=== PATIENT | male | born 1940 | race Caucasian/White ===

== ENCOUNTER 2017-12-14 10:19 | Day surgery (SDC) | payer MEDICARE, OTHER ==
[2017-12-13 17:10] LABS: HEMATOCRIT 47.4 % (42.0-54.0); HEMOGLOBIN 15.2 g/dL (13.5-17.5); MCHC 32.1 g/dL (31.0-37.0); MCV 87.3 fL (80.0-100.0); MEAN PLATELET VOLUME 9.5 fL (7.4-10.4); RBC 5.43 10x6/uL (4.20-6.10); RDW 16.9 % (11.5-14.5); WBC 11.7 10x3/uL (4.8-10.8)
[2017-12-13 17:35] LABS: CALCIUM 8.4 mg/dL (8.5-10.1); CREATININE - SERUM 1.3 mg/dL (0.6-1.3)
[~2017-12-14] VITALS: Ht 185.4 cm; Wt 111.1 kg
--- NOTE | ~2017-12-14 | OP ---
PATIENT NAME: NANO URBAN MEDICAL RECORD: [id number] :38 LOCATION:[facility] ADMISSION DATE: SURGEON: WYATT BLUE DATE OF OPERATION: 12/14/2017 SURGEON: Wyatt Blue DPM PREOPERATIVE DIAGNOSIS: Tailor's bunion, left foot. POSTOPERATIVE DIAGNOSIS: Tailor's bunion, left foot. PROCEDURE: Reverse Bipin bunionectomy, left foot. ANESTHESIA: General. HEMOSTASIS: Pneumatic ankle tourniquet inflated to 250 mmHg. ESTIMATED BLOOD LOSS: Minimal. MATERIALS: Two 0.045-inch K-wires. INJECTABLES: A 10 cc of 0.5% bupivacaine plain. The patient has long-standing history of pain associated with a Tailor's bunion deformity. He has tried conservative measures to no avail. He is here today for correction of that deformity. We again reviewed the risks and benefits of the procedure. Complications were discussed. All questions were answered. He was appropriately consented for the above-mentioned procedure. The patient was brought to the operating room and placed on the operating table in supine position. A time-out was called with Dr. Blue, who identified the patient, the surgical site, and the surgery to be performed. Once appropriate anesthesia was obtained, the foot was prepped and draped in the usual aseptic manner. The pneumatic ankle tourniquet was inflated to 250 mmHg on a well-padded left ankle. Attention was directed to the dorsal aspect of the fifth metatarsophalangeal joint, where a 5-cm linear incision was made. This incision was carried deep to soft tissue with care being taken to retract all vital neurovascular structures. All bleeders were cauterized along the way. The periosteum was then reflected from the head of the first metatarsal and the base of the fifth proximal phalanx. The hypertrophied lateral eminence was then resected utilizing a sagittal saw. Utilizing a sagittal saw, a V-shaped osteotomy was created in the head of the fifth metatarsal. The capital fragment was translocated medially and impacted upon the fifth metatarsal shaft. Next, two 0.045-inch K-wires were driven from distal to proximal through the capital fragment and into the fifth metatarsal shaft. The surgical site was then irrigated with copious amounts of normal sterile saline via bulb syringe. The periosteum was then reapproximated and coapted utilizing 3-0 Vicryl. The subcutaneous was then reapproximated and coapted using 3-0 Vicryl. The skin was then reapproximated and coapted using 4-0 Prolene. A dressing consisting of Xeroform, 4 x 4, Kerlix, and Adalid bandage was applied to the left foot. The OPERATIVE REPORT [id number] NANO URBAN pneumatic ankle tourniquet was deflated and capillary refill time was immediate to all digits of the involved foot. The patient was discharged home with instructions to ice and elevate the foot. He was dispensed a boot to further offload the area. There were no complications with this procedure. We will follow up with him next week. TRANSINT:[id number] Voice Confirmation ID: [id number] DOCUMENT ID: [id number] WYATT BLUE at 1450 CC: [id number] DICTATION DATE: 12/14/17 1503 SMASH HAND: 12/14/17 1630 [facility] 12/14/[address] [address]
[~2017-12-14 10:19] MED LIST: CIPRO500 MG PO; DIOVAN320 MG PO; FLAGYL500 MG PO; JANUMET 50-5001 TAB PO; LOVAZA1 G PO; MONODOX100 MG PO; ZANTAC150 MG PO
[2017-12-14 10:45] VITALS: BP 139/84; Ht 185.4 cm; Wt 111.1 kg
== END 2017-12-14 16:31 | disposition home or self-care (01) ==
LOC: D.OPS 10:19 → D.PAN 12:00 → D.OPS 12:30
PROVIDERS: Anesthesiology
DX: M21.622 Bunionette of left foot (principal); Z01.812 Encounter for preprocedural laboratory examination

== ENCOUNTER 2020-07-14 06:14 | Inpatient (IN) | payer MEDICARE, OTHER ==
[~2020-07-14] VITALS: Ht 185.4 cm; Wt 108.7 kg
[2020-07-14] VITALS (17 sets, daily range): BP systolic 121–158; BP diastolic 59–105; BMI 30.6
[2020-07-14 07:16] LABS: BASOPHILS 0.2 % (0-2); EOSINOPHILS 0.7 % (0-7); HEMOGLOBIN 9.1 g/dL (13.5-17.5); IMMATURE GRANULOCYTES 0.4 % (0-5); LYMPHOCYTES 8.5 % (15-50); MCH 24.6 pg (26.0-34.0); MCHC 31.4 g/dL (31.0-37.0); MCV 78.4 fL (80.0-100.0); MEAN PLATELET VOLUME 8.7 fL (7.4-10.4); MONOCYTES 9.7 % (2-11); NEUTROPHILS 80.5 % (40-80); RDW 17.1 % (11.5-14.5); WBC 12.7 10x3/uL (4.8-10.8)
[2020-07-14 07:17] LABS: PLATELET COUNT 368 10x3/uL (130-400)
[2020-07-14 07:23] LABS: APTT 42.2 SECONDS (22.8-39.4); INR 1.25 (0.85-1.17); PROTIME 15.6 SECONDS (11.6-15.0)
[2020-07-14 07:26] LABS: D-DIMER-QUANTITATIVE 2.38 ug/mLFEU (0.20-0.54)
[2020-07-14 07:33] LABS: ALBUMIN 2.3 g/dL (3.4-5.0); ALKALINE PHOSPHATASE 38 U/L (30-120); ALT (SGPT) 18 U/L (10-68); BILIRUBIN - TOTAL 0.63 mg/dL (0.2-1.3); CALCIUM 7.6 mg/dL (8.5-10.1); CARBON DIOXIDE 29.3 mmol/L (21.0-32.0); CHLORIDE - SERUM 100 mmol/L (98-107); CREATININE - SERUM 1.2 mg/dL (0.6-1.3); MAGNESIUM - SERUM 1.1 mg/dL (1.8-2.4); PRO BNP 1343 pg/mL (0-450); PROTEIN - SERUM 5.4 g/dL (6.4-8.2); SODIUM 138 mmol/L (136-145); UREA NITROGEN 21 mg/dL (7-18); eGFR NON AFRICAN AMERICAN 62 mL/min (90-120)
[2020-07-14 07:52] LABS: CALC OSMOLALITY 285 mosm/kg (275-300); GLUCOSE 216 mg/dL (74-106); LIPASE 43 U/L (73-393); TROPONIN-I < 0.017 ng/mL (0.000-0.060)
[2020-07-14 07:53] LABS: POTASSIUM - SERUM 2.9 mmol/L (3.5-5.1)
[2020-07-14 07:56] LABS: C-REACTIVE PROTEIN 22.9 mg/dL (0.0-0.9)
--- NOTE | 2020-07-14 07:56 | NUR ---
ERP INFORMED OF CRITICAL LAB: K+ OF 2.9 AND LACTIC ACID OF 2.6
[2020-07-14 09:59] LABS: BILIRUBIN NEGATIVE (NEGATIVE); KETONE NEGATIVE (NEGATIVE); NITRITE NEGATIVE (NEGATIVE); UROBILINOGEN NORMAL (NORMAL)
[2020-07-14 10:05] LABS: RED CELLS - URINE >50 /hpf (0-5)
[2020-07-14 10:06] LABS: BACTERIA FEW /hpf (NEGATIVE); EPITHELIAL CELLS NSEEN /hpf (0-5)
--- NOTE | 2020-07-14 15:49 | NUR ---
PT FINISHED EATING HIS TRAY, PT ADVISED THAT HE FELT BETTER
[2020-07-14 16:52] LABS: POTASSIUM - SERUM 2.9 mmol/L (3.5-5.1)
--- NOTE | 2020-07-14 21:28 | NUR ---
PT ARRIVED VIA WHEELCHAIR TO ROOM. HE MOVED SELF TO BED SAFLEY AND WITH GOOD BALANCE. PT IS A&OX4, VS STABLE, HOWEVER HR IS 109 A.FIB WHICH IS THE REASON THE PT WAS ADMITED FOR NEW ONSET A.FIB. HE IS ON A CARDIZEM DRIP AT 0.5MG/HR IN THE RIGHT AC THAT IS CDI, NO S/S OF INFILTRATION. HE VOICES"NO" TO ANY PAIN OR OTHER C/O. WILL PERFORM FULL ASSESSMENT AND HISTORY AND DOC IN FLOWSHEET. ORIENTED PT TO USE OF CALL LIGHT AND HE VERBALIZED UNDERSTANDING. BED IS LOW,SIDE RAISLX2, CALL LIGTH WITHIN REACH. WILL CONTINUE TO MONITOR
--- NOTE | 2020-07-14 21:45 | NUR ---
WAS NOTIFED THAT PT WAS ACTUALLY ADMITED TO THE HOSPITAL TODAY WELL FROM AN OUTPT PROCEDURE. SET UP PHONE IN PT ROOM SO HE COULD CALL AND RECIVED HER ROOM NUMBER TO LET HIM KNOW WHAT NUMBER TO CALL. HE CALLS AT THIS TIME FROM ROOM PHONE AND IS TALKING WITH HER NOW.
--- NOTE | 2020-07-15 00:13 | NUR ---
PT USED CALL LIGHT TO GO TO BR. HE AMB BY SELF WITH GOOD BALANCE. HE VOIDED 350ML OF DARK YELLOW URINE. WILL COLLECT URINE SAMPLE PER ORDER. PT BACK TO BED SAFELY. NO NEEDS OR C/O OF PAIN. BED IS LOW,SIDE RIALSX2,CALL LIGTH WITHIN REACH. WILL CONITNUE TO MONITOR
[2020-07-15 01:11] LABS: BILIRUBIN NEGATIVE (NEGATIVE); KETONE NEGATIVE (NEGATIVE); NITRITE NEGATIVE (NEGATIVE); UROBILINOGEN NORMAL (NORMAL)
[2020-07-15 01:14] LABS: BACTERIA FEW /hpf (NEGATIVE); EPITHELIAL CELLS 0-5 /hpf (0-5); WHITE CELLS - URINE 0-5 /hpf (NEGATIVE)
--- NOTE | 2020-07-15 02:50 | NUR ---
PT USED CALL LIGHT TO GO TO BATHROOM. HE VOIDED 250ML OF YELLOW URINE AND BACK TO BED SAFLY. NO NEEDS OR C/O OF PAIN. BED IS LOW,SIDE RAISLX2,CALL LIGHT WITHIN REACH. WILL CONITNUE TO MONITOR
[2020-07-15 04:00] VITALS: BP 106/76
[2020-07-15 05:03] LABS: BASOPHILS 0.2 % (0-2); EOSINOPHILS 1.5 % (0-7); HEMATOCRIT 26.7 % (42.0-54.0); HEMOGLOBIN 8.5 g/dL (13.5-17.5); IMMATURE GRANULOCYTES 0.3 % (0-5); LYMPHOCYTES 14.3 % (15-50); MCH 24.8 pg (26.0-34.0); MCHC 31.8 g/dL (31.0-37.0); MCV 77.8 fL (80.0-100.0); MEAN PLATELET VOLUME 8.6 fL (7.4-10.4); MONOCYTES 16.4 % (2-11); NEUTROPHILS 67.3 % (40-80); PLATELET COUNT 364 10x3/uL (130-400); RBC 3.43 10x6/uL (4.20-6.10); RDW 17.2 % (11.5-14.5); WBC 6.6 10x3/uL (4.8-10.8)
[2020-07-15 05:22] LABS: % SATURATION 9 % (15-55); IRON 11 ug/dl (35-150); TOTAL IRON BIND CAPACITY 113 ug/dl (260-445); UNSAT IRON BIND CAPACITY 102 ug/dl (150-375)
[2020-07-15 05:40] LABS: CALC OSMOLALITY 282 mosm/kg (275-300); CALCIUM 7.4 mg/dL (8.5-10.1); CARBON DIOXIDE 29.5 mmol/L (21.0-32.0); CHLORIDE - SERUM 105 mmol/L (98-107); CHOL - HDL RATIO 2.4 ratio (2.3-4.9); CHOLESTEROL, TOTAL 66 mg/dL (0-200); CKMB 1.3 U/L (0.0-3.6); CREATINE KINASE 42 UL (21-232); CREATININE - SERUM 0.9 mg/dL (0.6-1.3); FERRITIN 107 ng/mL (3-244); GLUCOSE 177 mg/dL (74-106); HDL CHOLESTEROL 27 mg/dL (32-96); LDH 100 U/L (85-227); LDL CHOLESTEROL 30 mg/dL (0-100); LDL-HDL RATIO 1.1 ratio (1.5-3.5); MAGNESIUM - SERUM 1.6 mg/dL (1.8-2.4); PHOSPHOROUS 1.9 mg/dL (2.5-4.9); POTASSIUM - SERUM 3.5 mmol/L (3.5-5.1); SODIUM 139 mmol/L (136-145); TRIGLYCERIDE 45 mg/dL (30-200); TROPONIN-I < 0.017 ng/mL (0.000-0.060); eGFR NON AFRICAN AMERICAN 86 mL/min (90-120)
[2020-07-15 05:49] LABS: UREA NITROGEN 15 mg/dL (7-18)
--- NOTE | 2020-07-15 06:20 | NUR ---
STAND BY ASSIST FOR PT UP TO CHAIR FOR AM. VSS. HE VOICES"I FEEL GREAT, I DONT FEEL LIKE THERE IS ANYTHING WRONG WITH ME". BEDSIDE TABLE IS BY SIDE. CHAIR WHEELS ARE LOCKED, CALL LIGHT AND PHONE ARE BY SIDE. PROVIDED PT WITH SCHEDULED AND PRN MEDS, SEE MAR AND A CUP OF ORANGE JUICE PER REQUEST.
[2020-07-15 07:00] VITALS: BP 129/66
--- NOTE | 2020-07-15 08:05 | NUR ---
SPOKE WITH DR HENDRICKSON. GAVE UPDATE. PLAN ON DOING EGD AROUND 1500 TODAY. WILL OBTAIN CONSENT AND MAKE PT NPO.
--- NOTE | 2020-07-15 09:45 | NUR ---
PT SIGNED CONSENTS FOR PROCEDURE AND FOR ANESTHESIA.
[2020-07-15 09:56] VITALS: BP 106/76
[2020-07-15 11:00] VITALS: BP 135/76
--- NOTE | 2020-07-15 14:18 | NUR ---
CALL RECEIVED FROM GI LAB TO PREOP PT.
[2020-07-15 15:00] VITALS: BP 143/83
--- NOTE | 2020-07-15 15:12 | NUR ---
GI NURSES IN ROOM. SETTING UP FOR EGD. WILL CONTINUE TO MONITOR
--- NOTE | 2020-07-15 19:28 | NUR ---
CALLED REPORT TO [facility] ON MED 2. WILL TRANSFER PT DOWN.
--- NOTE | 2020-07-15 20:00 | NUR ---
PATIENT ARRIVED TO FLOOR BY WHEELCHAIR. PATIENT IS ALERT AND ORIENTED, RESTING COMFORTABLY IN BED. RESPIRATIONS ARE EVEN AND UNLABORED. NO S/S OF DISTRESS. NO C/O PAIN. NEEDS MET. CALL LIGHT WITHIN REACH. WILL CPOC.
--- NOTE | 2020-07-15 23:45 | NUR ---
PATIENT WAS TRANSFERRED FROM [facility] ICU. WAS TOLD IN REPORT THAT PATIENT WAS ALERT AND ORIENTED UP AD SA[place]H. PATIENT WAS FOUND ON FLOOR IN A PUDDLE OF FECES. PATIENT WAS DRINKING GO/ LYTELY. PATIENT DENIES ANY INJURIES. VITALS TAKEN BP 129/68 HR 150 UCAFIB. O2 99% CASH TOS[place]O APN NOTIFIED. PATIENT DOES NOT WANT HIS FAMILY NOTIFIED. MANAGER INTRANET NOTIFIED. PATIENT PLACED ON BED ALARM.
[2020-07-16 00:30] VITALS: BP 129/68
[2020-07-16 02:28] LABS: HEMATOCRIT 27.2 % (42.0-54.0); HEMOGLOBIN 8.5 g/dL (13.5-17.5)
[2020-07-16 04:30] VITALS: BP 132/71
[2020-07-16 07:12] LABS: HEMATOCRIT 29.4 % (42.0-54.0); HEMOGLOBIN 9.1 g/dL (13.5-17.5); MCH 24.4 pg (26.0-34.0); MCV 78.8 fL (80.0-100.0); MEAN PLATELET VOLUME 8.4 fL (7.4-10.4); PLATELET COUNT 360 10x3/uL (130-400); RBC 3.73 10x6/uL (4.20-6.10); RDW 17.3 % (11.5-14.5); WBC 20.3 10x3/uL (4.8-10.8)
[2020-07-16 07:22] LABS: ANION GAP 10.8 mmol/L (8-16); CALCIUM 7.2 mg/dL (8.5-10.1); CARBON DIOXIDE 30.4 mmol/L (21.0-32.0); CREATININE - SERUM 1.1 mg/dL (0.6-1.3); MAGNESIUM - SERUM 1.6 mg/dL (1.8-2.4); POTASSIUM - SERUM 4.2 mmol/L (3.5-5.1)
[2020-07-16 07:24] LABS: PHOSPHOROUS 2.6 mg/dL (2.5-4.9)
[2020-07-16 08:51] VITALS: BP 141/73
--- NOTE | 2020-07-16 10:24 | NUR ---
HAS CONVERTED TO SR 72.
[2020-07-16 11:59] VITALS: BP 112/70
[2020-07-16 13:28] LABS: LYMPHOCYTES 12 % (15-50); MONOCYTES 17 % (2-11); NEUTROPHILS 56 % (40-80)
[2020-07-16 13:29] LABS: ACANTHOCYTES OCC; PLATELET ESTIMATE NORMAL
--- NOTE | 2020-07-16 14:30 | NUR ---
PRE-OPS GIVEN. TO GI LAB BY BED.
--- NOTE | 2020-07-16 15:40 | NUR ---
BACK FROM GI LAB. DIET RESUMED.
[2020-07-16 16:47] LABS: % SATURATION 6 % (15-55); IRON 8 ug/dl (35-150); TOTAL IRON BIND CAPACITY 121 ug/dl (260-445); UNSAT IRON BIND CAPACITY 113 ug/dl (150-375)
[2020-07-16 20:00] VITALS: BP 111/66
--- NOTE | 2020-07-16 22:30 | NUR ---
CARIDZEM DRIP STOPPED. PATIENT HR BETWEEN 58-68 SINUS RHYTHM.
[2020-07-17] VITALS: BP 105/56
[2020-07-17 04:00] VITALS: BP 112/63
[2020-07-17 06:45] LABS: BASOPHILS 0.1 % (0-2); EOSINOPHILS 1.1 % (0-7); HEMATOCRIT 27.1 % (42.0-54.0); HEMOGLOBIN 8.1 g/dL (13.5-17.5); IMMATURE GRANULOCYTES 0.4 % (0-5); LYMPHOCYTES 15.1 % (15-50); MCH 23.6 pg (26.0-34.0); MCHC 29.9 g/dL (31.0-37.0); MEAN PLATELET VOLUME 8.5 fL (7.4-10.4); MONOCYTES 13.5 % (2-11); NEUTROPHILS 69.8 % (40-80); PLATELET COUNT 413 10x3/uL (130-400); RBC 3.43 10x6/uL (4.20-6.10); RDW 17.6 % (11.5-14.5)
[2020-07-17 06:48] LABS: WBC 9.1 10x3/uL (4.8-10.8)
[2020-07-17 07:04] LABS: CALCIUM 7.3 mg/dL (8.5-10.1); CARBON DIOXIDE 29.7 mmol/L (21.0-32.0); CHLORIDE - SERUM 105 mmol/L (98-107); CREATININE - SERUM 0.9 mg/dL (0.6-1.3); PHOSPHOROUS 2.3 mg/dL (2.5-4.9); SODIUM 139 mmol/L (136-145); UREA NITROGEN 13 mg/dL (7-18); eGFR NON AFRICAN AMERICAN 86 mL/min (90-120)
[2020-07-17 07:06] LABS: CALC OSMOLALITY 276 mosm/kg (275-300); GLUCOSE 87 mg/dL (74-106); MAGNESIUM - SERUM 2.1 mg/dL (1.8-2.4); POTASSIUM - SERUM 3.4 mmol/L (3.5-5.1)
[2020-07-17 08:01] VITALS: BP 117/65
--- NOTE | 2020-07-17 08:19 | EC ---
PATIENT:NANO URBAN DATE OF SERVICE: 07/14/20 SEX: M MEDICAL RECORD: [id number] DATE OF : 38 LOCATION:D.M2 D.211 AGE OF PATIENT: 79 ADMISSION DATE: 07/14/20 REFERRING PHYSICIAN: INTERPRETING PHYSICIAN: ROMEO CONNELL MD ECHOCARDIOGRAM REPORT ECHO CHARGES 4 ECHO COMPLETE Date: 07/14/20 CLINICAL DIAGNOSIS: AFIB ECHOCARDIOGRAPHIC MEASUREMENTS (adult normal given) AC root (d.<3.7cm) 3.5 cm LV Septum d (<1.2 cm> 1.1 cm Valve Excursion 1.6 cm LV Septum (systole) 1.9 cm Left Atria (s.<4.0cm> 3.1 cm LVPW d(<1.2cm) 1.1 cm RV (d.<2.3cm) 3.5 cm LVPW (sytole) 1.3 cm LV diastole(<5.6CM) 6.2 cm MV E-F(>70mm/sec) cm LV systole 4.7 cm LVOT Diameter 2.1 cm MV exc.(>10mm) cm Est.ejection fraction (50-75%) % DOPPLER: LVIT cm/sec A 78 cm/sec E 56 cm/sec LA cm/sec RVSP 22.4 mmHg LVOT 121 cm/sec AOP1/2T m/s Asc. Ao 147 cm/sec RVOT 65 cm/sec RA cm/sec PA 89 cm/sec AV Gradient Peak 8.7 mmHg AV Mean 5.3 mmHg AV Area 3.4 cm MV Gradient Peak 4.0 mmHg MV Mean 1.8 mmHg MV Area cm COMMENTS: Documentation Coordinator: Thong [facility] Junior Buyer: 3 Dr. Castellano TAPE# PACS Pericardial Effusion N DATE OF SERVICE: Adequate 2D, color-flow imaging, spectral Doppler, and M-Mode. No LVH. LV internal dimension is normal. Wall motion is normal. EF is greater than or equal to 55%. Aortic valve is sclerotic. No evidence of stenosis by Doppler interrogation. Left atrium is normal. Mitral valve shows no prolapse. Trace MR. Right-sided chambers are grossly normal. Trace TR. TRANSINT:[id number] Voice Confirmation ID: [id number] DOCUMENT ID: [id number] ECHOCARDIOGRAM REPORT [id number] NANO URBAN ROMEO CONNELL MD at 0819 CC: [id number] DICTATION DATE: 07/14/20 1446 CUPOLA MELTING SUPERVISOR: 07/14/20 2308 ADM IN [place] [id number] [place] [address]
[2020-07-17 12:30] VITALS: BP 127/67
[2020-07-17 12:44] VITALS: Ht 185.4 cm; Wt 108.7 kg
[2020-07-17 16:02] VITALS: BP 124/65
[2020-07-17 20:00] VITALS: BP 110/55
--- NOTE | 2020-07-17 20:00 | NUR ---
INITIAL ROUNDS COMPLETED. PT RESTING IN BED. NONLABORED RESPIRATIONS. CAF PER TELEMETRY. SALINE LOCK TO LFA. CPOC. CALL LIGHT IN REACH.
[2020-07-18 04:00] VITALS: BP 116/60
[2020-07-18 05:49] LABS: BASOPHILS 0.1 % (0-2); EOSINOPHILS 1.5 % (0-7); HEMATOCRIT 27.2 % (42.0-54.0); HEMOGLOBIN 8.2 g/dL (13.5-17.5); IMMATURE GRANULOCYTES 0.5 % (0-5); LYMPHOCYTES 20.6 % (15-50); MCHC 30.1 g/dL (31.0-37.0); MCV 79.8 fL (80.0-100.0); MEAN PLATELET VOLUME 8.5 fL (7.4-10.4); MONOCYTES 15.2 % (2-11); NEUTROPHILS 62.1 % (40-80); PLATELET COUNT 421 10x3/uL (130-400); RBC 3.41 10x6/uL (4.20-6.10); RDW 17.7 % (11.5-14.5); WBC 7.5 10x3/uL (4.8-10.8)
[2020-07-18 06:07] LABS: ANION GAP 6.2 mmol/L (8-16); CALCIUM 7.2 mg/dL (8.5-10.1); CARBON DIOXIDE 30.1 mmol/L (21.0-32.0); CREATININE - SERUM 1.1 mg/dL (0.6-1.3); PHOSPHOROUS 2.1 mg/dL (2.5-4.9); POTASSIUM - SERUM 3.3 mmol/L (3.5-5.1)
[2020-07-18 08:13] VITALS: BP 107/83
--- NOTE | 2020-07-18 11:41 | NUR ---
THIS AM PT RESTING QUIETLY WITHOUT ANY DISTRESS. MONITOR SHOWS SR AT RATE OF 95. LOWER EXTREMITIES ARE EDEMATOUS. WILL CONTINUE TO MONITOR.
[2020-07-18 12:00] VITALS: BP 139/62
[2020-07-18 16:00] VITALS: BP 115/73
[2020-07-18 20:00] VITALS: BP 113/58
--- NOTE | 2020-07-18 21:51 | NUR ---
PM MEDICATIONS ADMININSTERED. FSBS WAS WNL AND DID NOT REQUIRE INSULIN. OCCULT STOOL AND URINE CULTURE SENT TO LAB. PT DENIES ANY NEEDS AT THIS TIME. NO S/S OF DISTRESS NOTED. PT DELIGHTFUL AND APPRECIATIVE. WILL CTM.
--- NOTE | 2020-07-18 23:00 | NUR ---
ASSUMMED CARE OF PATIENT AT 2300. REPORT RECIEVED. PT RESTING IN BED WITH NO DISTRESS. SR UP X 2, CALL LIGHT IN REACH. CPOC.
[2020-07-19] VITALS: BP 108/47
[2020-07-19 04:00] VITALS: BP 124/79
[2020-07-19 06:18] LABS: BASOPHILS 0.1 % (0-2); EOSINOPHILS 1.2 % (0-7); HEMATOCRIT 26.7 % (42.0-54.0); HEMOGLOBIN 8.1 g/dL (13.5-17.5); IMMATURE GRANULOCYTES 0.7 % (0-5); LYMPHOCYTES 21.9 % (15-50); MCH 24.2 pg (26.0-34.0); MCHC 30.3 g/dL (31.0-37.0); MCV 79.7 fL (80.0-100.0); MEAN PLATELET VOLUME 8.5 fL (7.4-10.4); MONOCYTES 13.2 % (2-11); NEUTROPHILS 62.9 % (40-80); PLATELET COUNT 402 10x3/uL (130-400); RBC 3.35 10x6/uL (4.20-6.10); RDW 17.6 % (11.5-14.5); WBC 6.8 10x3/uL (4.8-10.8)
[2020-07-19 06:39] LABS: CALC OSMOLALITY 279 mosm/kg (275-300); CALCIUM 7.3 mg/dL (8.5-10.1); CARBON DIOXIDE 31.5 mmol/L (21.0-32.0); CHLORIDE - SERUM 105 mmol/L (98-107); CREATININE - SERUM 0.9 mg/dL (0.6-1.3); GLUCOSE 115 mg/dL (74-106); MAGNESIUM - SERUM 1.7 mg/dL (1.8-2.4); PHOSPHOROUS 2.5 mg/dL (2.5-4.9); SODIUM 140 mmol/L (136-145); UREA NITROGEN 13 mg/dL (7-18); eGFR NON AFRICAN AMERICAN 86 mL/min (90-120)
[2020-07-19 06:47] LABS: POTASSIUM - SERUM 4.4 mmol/L (3.5-5.1)
[2020-07-19 08:00] VITALS: BP 132/66
[2020-07-19] MEDS ORDERED: BETAPACE 80 MG80 MG PO (14:50)
[2020-07-19] MEDS ORDERED: OMNICEF300 MG PO (14:50)
[2020-07-19] MEDS ORDERED: PROTONIX40 MG PO (15:02)
[2020-07-19] MEDS ORDERED: CARAFATE1 G PO (15:02)
--- NOTE | 2020-07-19 16:07 | NUR ---
IV AND TELEMETRY DCD. DC PLANS GIVEN. UNDERSTANDING VOICED. ESCORTED TO CAR BY W/C.
== END 2020-07-19 16:08 | disposition home or self-care (01) | DRG 393 ==
LOC: D.ER 06:14 → D.M2 19:31 → D.CVICU 19:31 → D.M2 07-15 19:30
PROVIDERS: Family Medicine; Internal Medicine Gastroenterology; ADMIT Family Medicine Adult Medicine; ATTEND Family Medicine Adult Medicine
PROC: 0DB68ZX Excision of Stomach, Via Natural or Artificial Opening Endoscopic, Diagnostic (ICD-10-PCS; principal; 2020-07-15 15:00)
PROC: 0DBM8ZX Excision of Descending Colon, Via Natural or Artificial Opening Endoscopic, Diagnostic (ICD-10-PCS; 2020-07-16)
PROC: 0DBN8ZX Excision of Sigmoid Colon, Via Natural or Artificial Opening Endoscopic, Diagnostic (ICD-10-PCS; 2020-07-16)
DX: K63.3 Ulcer of intestine (principal); K29.71 Gastritis, unspecified, with bleeding; I48.91 Unspecified atrial fibrillation; D50.9 Iron deficiency anemia, unspecified; E87.6 Hypokalemia; I10 Essential (primary) hypertension; N40.0 Benign prostatic hyperplasia without lower urinary tract symptoms; E11.51 Type 2 diabetes mellitus with diabetic peripheral angiopathy without gangrene; K21.0 Gastro-esophageal reflux disease with esophagitis; K44.9 Diaphragmatic hernia without obstruction or gangrene; K25.9 Gastric ulcer, unspecified as acute or chronic, without hemorrhage or perforation; K64.8 Other hemorrhoids; E03.9 Hypothyroidism, unspecified

== ENCOUNTER 2020-07-27 09:32 | Outpatient (CLI) | payer MEDICARE, OTHER ==
[~2020-07-27] VITALS: Ht 185.4 cm; Wt 105.5 kg
[~2020-07-27 09:32] MED LIST changes: +BETAPACE 80 MG80 MG PO; +CARAFATE1 G PO; +OMNICEF300 MG PO; +PROTONIX40 MG PO
[2020-07-27 10:39] VITALS: BP 116/69; Ht 185.4 cm; Wt 105.5 kg
[2020-07-27] MEDS ORDERED: BAYER CHEWABLE81 MG PO (10:46)
[2020-07-27] MEDS ORDERED: OMNICEF300 MG PO (10:48)
--- NOTE | 2020-07-27 16:37 | NUR ---
2ND UNIT PRBC'S FINISHED TRANSFUSING. PATIENT LYING IN BED, AWAKE, ALERT, DENIES COMPLAINTS. IV FLUSHING WITH NS, SPOUSE NOTIFIED OF PATIENT'S IMPENDING DISCHARGE BY PHONE. 1705 LEFT HAND PIV DC'D WITH TIP INTACT. DISCHARGE INSTRUCTIONS REVIEWED WITH PATIENT. 1710 PATIENT DISCHARGED HOME VIA WHEELCHAIR TO PRIVATE VEHICLE WITH SPOUSE
== END 2020-07-27 17:10 | disposition home or self-care (01) ==
LOC: D.OPS 09:32
PROVIDERS: ATTEND Emergency Medicine
DX: D64.89 Other specified anemias (principal)

== ENCOUNTER 2020-08-11 10:58 | Day surgery (SDC) | payer MEDICARE, OTHER ==
[~2020-08-11] VITALS: Ht 185.4 cm; Wt 111.3 kg
--- NOTE | ~2020-08-11 | OP ---
PATIENT NAME: NANO COHEN MEDICAL RECORD: [id number] :38 LOCATION:D.CAT ADMISSION DATE: SURGEON: ROMEO CONNELL MD DATE OF OPERATION: 08/11/2020 PROCEDURE: Cardioversion. DESCRIPTION OF PROCEDURE: After general sedation via TIVA via anesthesia, initial synchronized shock at 200 joules was unsuccessful in restoring normal sinus rhythm. We proceeded with a second shock at 300 joules. This showed sikhism of atrial fibrillation to normal sinus rhythm with frequent PACs. IMPRESSION: Successful cardioversion on Nano Cohen. During the procedure, the patient monitored continually with telemetry, pulse oximetry, and noninvasive blood pressure. TRANSINT:[id number] Voice Confirmation ID: [id number] DOCUMENT ID: [id number] ROMEO CONNELL MD CC: [id number] DICTATION DATE: 08/11/20 1504 IC DESIGNER CUSTOM: 08/12/20 0007 [facility] 08/11/20 [place] [id number]
--- NOTE | ~2020-08-11 | TEE ---
PATIENT:NANO URBAN MEDICAL RECORD: [id number] [facility] AGE OF PATIENT: 79 ADMISSION DATE: 08/11/20 SEX: M REFERRING PHYSICIAN: INTERPRETING PHYSICIAN: ROMEO CONNELL MD TRANSESOPHAGEAL ECHOCARDIOGRAM Date: 08/11/20 SARATH CHARGE Y INDICATIONS: CARDIOVERSION PREMEDICATIONS: PATIENT'S RESPONSE PROCEDURE DOPPLER MEASUREMENTS: LVIT LA PA RA LVOT RVOT Asc. Ao AV Gradient Peak AV Mean AV Area MV Gradient Peak MV Mean MV Area INTERPRETATION: Doppler: 2-D: COLOR FLOW DOPPLER NORMAL SALINE STUDY: MISCELLANOUS: DIAGNOSIS: PLAN: School Bus Driver:3 Dr. Castellano Rotary Lithographic Press Operator: Thong RICARDO COMMENTS: PACS DATE OF SERVICE: 08/11/2020 DESCRIPTION OF PROCEDURE: After general sedation via TIVA via anesthesia, transesophageal Omniplane probe was placed in the distal esophagus and proximal stomach without difficulty. FINDINGS: No LVH. LV internal dimensions are normal. Difficult to fully assess focal wall motion secondary to underlying atrial fibrillation; however on views present EF appears to be well preserved at 50% or better. Aortic valve is TRANSESOPHAGEAL ECHOCARDIOGRAM REPORT [id number] NANO URBAN V tricuspid. Good valve excursion. Mild AI only. Left atrium grossly appears normal. Left atrial appendage is well visualized with no evidence of thrombus and good contractility via Doppler interrogation. Mitral valve shows no prolapse. Trace to mild MR. Right-sided chambers are grossly normal. Trace TR. At the end of the procedure, the probe was turned posteriorly and this showed minimal atherosclerotic debris in the descending aorta. TRANSINT:[id number] Voice Confirmation ID: [id number] DOCUMENT ID: [id number] ROMEO CONNELL MD CC: [id number] DICTATION DATE: 08/11/20 1503 PARTS CASTING MACHINE OPERATOR: 08/12/20 0402 [facility] 08/11/20 [facility] [address] [place] [id number]
--- NOTE | ~2020-08-11 | HEMODYNAMI ---
PATIENT:NANO URBAN MEDICAL RECORD: [id number] : 38 LOCATION:[facility] ADMISSION DATE: 08/11/20 Generatedon:08/11/202013:35 Patient name: NANO URBAN Patient #: [id number] SSN: : 1940 Date of study: 08/11/2020 Page: Of Hemodynamic Procedure Report Patient Data Patient Demographics Procedure consent was obtained First Name: NANO Gender: Male Last Name: WILMAR : 1940 Middle Initial: BOOGIE Age: 79 year(s) Patient #: [id number] Race: Additional ID: [id number] Contact details Address: [address] [place] [address] State: [place] City: [place] Zip code: [address] Past Medical History Allergies: No known allergies Admission Admission Data Admission Date: 08/11/2020 Admission Time: 10:58 Admit Source: Other Lab Results Lab Result Date: 08/11/2020 Lab Result Time: 11:45 Biochemistry Name Units Result Min Max BUN mg/dl 12 --(-*--)-- 7 18 Creatinine mg/dl 0.9 --(-*--)-- 0.6 1.3 CBC Name Units Result Min Max Hematocrit % 29.1 *-(----)-- 42 54 Hemoglobin g/dl 8.7 *-(----)-- 13.5 17.5 Procedure Procedure Types Cath Procedure Diagnostic Procedure Cardioversion External SARATH Procedure Description Procedure Date Procedure Date: 08/11/2020 Procedure Start Time: 13:09 Procedure End Time: 13:30 Procedure Staff Name Function Ron Alexandra MD Performing Physician Mathew Gomez RT Monitor Rose Gallegos RN Nurse Saleem Allen CRNA Additional personnel Minerva Muñoz Painter Mirror Procedure Data Cath Procedure Fluoroscopy Diagnostic fluoroscopy Total fluoroscopy Time: 0 time: 0 min min Diagnostic fluoroscopy Total fluoroscopy dose: 0 dose: 0 mGy mGy Contrast Material Contrast Material Type Amount (ml) Isovue 300 0 Estimated blood loss: 0 ml Procedure Complications No complications Procedure Medications Medication Administration Route Dosage Oxygen etCO2 Nasal cannula 2 l/min Hurricaine [place] P.O. 1 Sprays Refer to Anesthesia Notes for Sedation Medications Hemodynamics Rest HGB: 8.7 (g/dl) Heart Rate: 109 (bpm) Snapshots Pre Cath Intra NCS Post Cath Vital Signs Time Heart Resp SPO2 etCO2 NIBP (mmHg) Rhythm Pain Sedation Rate (ipm) (%) (mmHg) Status Level (bpm) 13:04:10 106 15 97 0 No Cuff NSR 0 (11) 10(A) , No pain 13:10:25 110 15 100 15 140/97(114) NSR 0 (11) 10(A) , No pain 13:14:37 96 20 96 23.3 142/89(108) NSR 0 (11) 9(A) , No pain 13:20:21 90 18 93 38.3 136/97(129) NSR 0 (11) 9(A) , No pain 13:24:33 113 24 94 39.1 130/85(113) NSR 0 (11) 9(A) , No pain 13:28:43 118 19 98 35.3 117/81(104) NSR 0 (11) 10(A) , No pain Medications Time Medication Route Dose Verified Delivered Reason Notes Effectiv eness by by 13:02:42 Hurricaine P.O. 1 Ron Rose Per [place] Sprays St Jason Gallegos RN physician 13:02:47 Refer to Ron Rose Anesthesia St Jason Gallegos RN Notes for MD Sedation Medications 13:05:33 Oxygen etCO2 2 Ron Rose used for Nasal l/min St Jason Gallegos RN procedure cannula Procedure Log Time Note 12:43:02 Admit Source: Other 12:44:40 Procedure Status Cardioversion, SARATH. 12:44:41 Time tracking: Regular hours (M-F 7:00 - 5:00) 12:44:44 Plan of Care:Hemodynamics will remain stable., Cardiac rhythm will remain stable., Comfort level will be maintained., Respiratory function will remain adequate., Patient/ family verbilizes understanding of procedure., Procedure tolerated without complication., Recovers from procedure without complications.. 12:46:03 H&P Date Dictated: 08/04/2020 Within 30 days and on chart.. 12:50:49 Buffie Gallegos RN sent for patient. Start room use. 12:57:46 Saleem Aleln CRNA present and monitoring patient for TIVA. 12:57:53 Patient arrived from Pre/Post Procedure Room to CCL 1. Patient remains on bed/stretcher for procedure. 12:57:54 Warm blankets applied, and mony hugger turned on for patient comfort. 12:57:55 Signed procedure consent form obtained from patient. 12:57:56 Correct patient and procedure confirmed by team. 12:57:57 ECG and BP/O2 sat monitors applied to patient. 12:57:58 Pre-procedure instructions explained to patient. 12:57:58 Pre-op teaching completed and patient verbalized understanding. 12:58:00 Family in waiting room. 12:58:01 Patient NPO since Midnight. 12:58:08 Patient allergic to No known allergies 13:00:31 Lab Result : BUN 12 mg/dl 13:00:31 Lab Result : Creatinine 0.9 mg/dl 13:00:31 Lab Result : Hemoglobin 8.7 g/dl 13:00:31 Lab Result : Hematocrit 29.1 % 13:00:35 Is the patient allergic to Iodine/contrast media? No. 13:00:37 Is patient on blood thinner?No 13:00:42 Previous problem with sedation/anesthesia? No ? 13:00:58 See anesthesia notes for assessment. 13:01:03 Lab results completed and on chart. 13:02:42 Hurricaine [place] 1 Sprays P.O. was administered by Rose Gallegos RN; Per physician; Verbal order read back and verified. 13:02:47 Refer to Anesthesia Notes for Sedation Medications was administered by Rose Gallegos RN; ; Verbal order read back and verified. 13:03:20 Vital chart was started 13:05:10 [facility] Clinical Supervisor present for SARATH. 13:05:12 Quick combo pads placed on patients chest and back. 13:05:20 Baseline sample Acquired. 13:05:24 Rhythm: atrial fibrillation 13:05:27 Full Disclosure recording started 13:05:33 Oxygen 2 l/min etCO2 Nasal cannula was administered by Rose Gallegos RN; used for procedure; Verbal order read back and verified. 13:07:33 Physician arrived 13:07:34 --------ALL STOP TIME OUT------ 13:07:35 Final Timeout: patient, procedure, and site verified with staff and physician. All members of the team are in agreement. 13::49 Physical assessment completed. ASA score P 4 - A patient with severe systemic disease that is a constant threat to life as per Ron Alexandra MD. 13:07:56 Sedation plan: TIVA Medication:Propofol 13:09:49 Procedure started. 13:09:50 SARATH started. 13:16:17 SARATH completed. 13:16:55 Defibrillator synced and charged to 200 Joules. 13:17:16 Shock delivered. 13:19:17 Defibrillator synced and charged to 300 Joules. 13:19:30 Shock delivered. 13:20:25 Patient cardioverted to sinus rhythm . 13:20:28 Procedure ended.(Physican Out) 13:21:48 Fluoroscopy time 00.00 minutes. 13::49 Flurop Dose total: 0 13::49 Fluoroscopy dose: 0 mGy 13::51 Dose Area Product 0 mGy/cm. 13::54 Contrast amount:Isovue 300 0ml. 13:22:00 Post-procedure physical assessment completed. ASA score P 4 - A patient with severe systemic disease that is a constant threat to life as per Ron Alexandra MD. 13:22:03 Post procedure rhythm: sinus rhythm 13:22:04 Estimated blood loss: 0 ml 13:22:06 Post procedure instruction explained to patient.Patient verbalizes understanding. 13:22:06 Patient needs reinforcement of post procedure teaching. 13:22:18 Procedure and supply charges have been captured, reviewed, submitted and are correct. 13:22:36 Procedure Complication : No complications 13::57 Vital chart was stopped 13:30:01 Operative report dictated upon procedure completion. 13:30:02 See physician's report for complete and final results. 13:30:03 Report given to Pre/Post Procedure Room. 13:30:06 Patient transfered to Pre/Post Procedure Room with Stretcher. 13:30:08 Procedure ended. 13:30:08 Full Disclosure recording stopped 13:30:16 End room use (Document Last) 13:30:34 End room use (Document Last) 13:30:44 Mathew HUNG(R) was relieved by Mathew HUNG(R) as monitoring person 13::44 End room use (Document Last) 13:34:43 End room use (Document Last) 13:34:49 Mathew Gomez RT(R) was relieved by Mathew Gomez RT(R) as monitoring person 13:34:49 End room use (Document Last) Signature Audit [place] Stage Time Signature Unsigned Intra-Procedure 08/11/2020 Mathew Gomez 1:30:34 PM RT(R) Intra-Procedure 08/11/2020 Rose Gallegos RN 1:34:43 PM Intra-Procedure 08/11/2020 Ron Mcmanus 1:35:12 PM Jason MURILLO Signatures Performing Physician : Signature : Ron Alexandra MD Date : Time : Monitor : Mathew Gomez RT Signature : Date : Time : Nurse : Rose Gallegos RN Signature : Date : Time : [address] [place] [address]
[~2020-08-11 10:58] MED LIST changes: +BAYER CHEWABLE81 MG PO
[2020-08-11] MEDS ORDERED: AMIODARONE HCL200 MG PO (11:14)
[2020-08-11] MEDS ORDERED: LEVOTHYROXINE50 MCG PO (11:15)
[2020-08-11] MEDS ORDERED: VIBRAMYCIN 100100 MG PO (11:15)
[2020-08-11] MEDS ORDERED: KEFLEX500 MG PO (11:16)
[2020-08-11] MEDS ORDERED: NEXIUM40 MG PO (11:16)
[2020-08-11] MEDS ORDERED: FLOMAX0.4 MG PO (11:17)
[2020-08-11] MEDS ORDERED: DONEPEZIL HCL10 MG PO (11:18)
[2020-08-11] MEDS ORDERED: CETIRIZINE HCL5 MG PO (11:21)
[2020-08-11 11:42] VITALS: BP 102/75; Ht 185.4 cm; Wt 111.3 kg
[2020-08-11 12:04] LABS: CALC OSMOLALITY 277 mosm/kg (275-300); CALCIUM 7.9 mg/dL (8.5-10.1); CARBON DIOXIDE 32.6 mmol/L (21.0-32.0); CHLORIDE - SERUM 101 mmol/L (98-107); CREATININE - SERUM 0.9 mg/dL (0.6-1.3); GLUCOSE 133 mg/dL (74-106); SODIUM 138 mmol/L (136-145); UREA NITROGEN 12 mg/dL (7-18); eGFR NON AFRICAN AMERICAN 86 mL/min (90-120)
[2020-08-11 12:07] LABS: POTASSIUM - SERUM 2.7 mmol/L (3.5-5.1)
[2020-08-11 12:16] LABS: BASOPHILS 0.2 % (0-2); EOSINOPHILS 1.2 % (0-7); HEMATOCRIT 29.1 % (42.0-54.0); HEMOGLOBIN 8.7 g/dL (13.5-17.5); IMMATURE GRANULOCYTES 0.6 % (0-5); LYMPHOCYTES 9.8 % (15-50); MCH 24.7 pg (26.0-34.0); MCHC 29.9 g/dL (31.0-37.0); MCV 82.7 fL (80.0-100.0); MEAN PLATELET VOLUME 8.5 fL (7.4-10.4); MONOCYTES 8.5 % (2-11); NEUTROPHILS 79.7 % (40-80); PLATELET COUNT 375 10x3/uL (130-400); RBC 3.52 10x6/uL (4.20-6.10); RDW 20.8 % (11.5-14.5); WBC 12.2 10x3/uL (4.8-10.8)
[2020-08-11 12:33] LABS: INR 1.17 (0.85-1.17); PROTIME 14.8 SECONDS (11.6-15.0)
[2020-08-11] MEDS ORDERED: FERROUS SULFAT325 MG PO (12:37)
[2020-08-11] MEDS ORDERED: MULTI-DAY VITAM1 TAB PO (12:37)
--- NOTE | 2020-08-11 13:40 | NUR ---
PT REC'D TO ROOM 5 VIA STRETCHER FROM RN ED. MONITORS ESTAB. AT BS. SEE PROCESS DEVELOPER. ALARMS ON AND C/L IN REACH.
--- NOTE | 2020-08-11 13:55 | NUR ---
VSS, CM IRREG - SINUS ARRYTHMIA WITH FREQ PACS, UNCHANGED FROM ARRIVAL TO UNIT. VSS. PT DENIES PAIN OR NEEDS. ALARMS ON AND C/L IN REACH.
--- NOTE | 2020-08-11 14:05 | NUR ---
PT SITTING UP IN BED, SANDWICH TRAY PROVIDED.
--- NOTE | 2020-08-11 14:23 | NUR ---
ALL DISCHARGE INSTRUCTIONS REVIEWED WITH PT AND , INCLUDING MEDS, RESTRICTIONS AND F/U. BOTH VERBALIZE UNDERSTANDING.
--- NOTE | 2020-08-11 14:25 | NUR ---
CM - UNCHANGED, VSS. PIV D/C'D INTACT, DSG APPLIED. PT ALLOWED UP TO GET DRESSED AND GO TO BR INDEPENDENTLY. ASSISTING.
--- NOTE | 2020-08-11 14:35 | NUR ---
PT D/C'D VIA WC TO PRIVATE VEHICLE WITH ALL PAPERWORK AND BELONGINGS.
== END 2020-08-11 14:35 | disposition home or self-care (01) ==
LOC: D.CATH 10:58
PROVIDERS: ATTEND Internal Medicine Interventional Cardiology
DX: I48.91 Unspecified atrial fibrillation (principal); I10 Essential (primary) hypertension

== ENCOUNTER 2021-02-02 10:56 | Inpatient (IN) | payer MEDICARE, OTHER ==
[~2021-02-02] VITALS: Ht 185.4 cm; Wt 91.8 kg
[~2021-02-02 10:56] MED LIST changes: +AMIODARONE HCL200 MG PO; +CETIRIZINE HCL5 MG PO; +DONEPEZIL HCL10 MG PO; +FERROUS SULFAT325 MG PO; +FLOMAX0.4 MG PO; +KEFLEX500 MG PO; +LEVOTHYROXINE50 MCG PO; +MULTI-DAY VITAM1 TAB PO; +NEXIUM40 MG PO; +VIBRAMYCIN 100100 MG PO
[2021-02-02 11:37] LABS: BASOPHILS 0.1 % (0-2); EOSINOPHILS 0.9 % (0-7); HEMATOCRIT 32.2 % (42.0-54.0); HEMOGLOBIN 10.3 g/dL (13.5-17.5); LYMPHOCYTE ABS# 1.51 10x3/uL (1.32-3.57); LYMPHOCYTES 12.1 % (15-50); MCH 27.7 pg (26.0-34.0); MCV 86.6 fL (80.0-100.0); MEAN PLATELET VOLUME 8.3 fL (7.4-10.4); MONOCYTES 5.9 % (2-11); NEUTROPHIL ABS# 9.98 10x3/uL (1.78-5.38); RBC 3.72 10x6/uL (4.20-6.10); RDW 19.4 % (11.5-14.5); WBC 12.5 10x3/uL (4.8-10.8)
[2021-02-02 11:39] LABS: PLATELET COUNT 255 10x3/uL (130-400)
[2021-02-02 11:55] LABS: CALC OSMOLALITY 281 mosm/kg (275-300); CALCIUM 9.3 mg/dL (8.5-10.1); CARBON DIOXIDE 28.3 mmol/L (21.0-32.0); CHLORIDE - SERUM 101 mmol/L (98-107); CREATININE - SERUM 1.3 mg/dL (0.6-1.3); POTASSIUM - SERUM 4.5 mmol/L (3.5-5.1); SODIUM 137 mmol/L (136-145); UREA NITROGEN 21 mg/dL (7-18); eGFR NON AFRICAN AMERICAN 56 mL/min (90-120)
[2021-02-02 11:57] LABS: GLUCOSE 190 mg/dL (74-106)
[2021-02-02 12:11] LABS: ALBUMIN 2.9 g/dL (3.4-5.0); ALKALINE PHOSPHATASE 42 U/L (30-120); ALT (SGPT) 20 U/L (10-68); BILIRUBIN - TOTAL 0.42 mg/dL (0.2-1.3); CKMB 0.8 U/L (0.0-3.6); CREATINE KINASE 40 UL (21-232); MAGNESIUM - SERUM 1.5 mg/dL (1.8-2.4); PROTEIN - SERUM 6.4 g/dL (6.4-8.2)
[2021-02-02 12:22] LABS: TROPONIN-I < 0.017 ng/mL (0.000-0.060)
[2021-02-02 12:23] LABS: APTT 29.2 SECONDS (22.8-39.4); INR 1.14 (0.85-1.17); PROTIME 13.5 SECONDS (11.6-15.0)
[2021-02-02 13:28] LABS: BILIRUBIN NEGATIVE (NEGATIVE); KETONE NEGATIVE (NEGATIVE); NITRITE NEGATIVE (NEGATIVE); UROBILINOGEN NORMAL mg/dL (< 2)
[2021-02-02 15:10] VITALS: BP 175/88
[2021-02-02 19:17] VITALS: BP 175/88; Ht 185.4 cm; Wt 91.8 kg
--- NOTE | 2021-02-02 20:00 | NUR ---
PT SITTING UP IN BED WITHOUT DISTRESS, AOX4. IV RIGHT AC INFUSING NS @ 75. BED ALARM ON. DENIES NEEDS AT THIS TIME. CL IN REACH
[2021-02-02 20:06] VITALS: BP 158/80
[2021-02-03] VITALS (10 sets, daily range): BP systolic 76–139; BP diastolic 40–78
[2021-02-03 06:49] LABS: BASOPHILS 0.3 % (0-2); EOSINOPHILS 1.7 % (0-7); HEMATOCRIT 29.7 % (42.0-54.0); HEMOGLOBIN 9.4 g/dL (13.5-17.5); IMMATURE GRANULOCYTES 0.5 % (0-5); LYMPHOCYTE ABS# 1.71 10x3/uL (1.32-3.57); LYMPHOCYTES 16.8 % (15-50); MCH 27.5 pg (26.0-34.0); MCHC 31.6 g/dL (31.0-37.0); MCV 86.8 fL (80.0-100.0); MEAN PLATELET VOLUME 8.4 fL (7.4-10.4); MONOCYTES 6.4 % (2-11); NEUTROPHIL ABS# 7.55 10x3/uL (1.78-5.38); NEUTROPHILS 74.3 % (40-80); PLATELET COUNT 235 10x3/uL (130-400); RBC 3.42 10x6/uL (4.20-6.10); WBC 10.2 10x3/uL (4.8-10.8)
[2021-02-03 06:52] LABS: APTT 30.8 SECONDS (22.8-39.4)
[2021-02-03 06:54] LABS: INR 1.24 (0.85-1.17); PROTIME 14.4 SECONDS (11.6-15.0)
[2021-02-03 07:06] LABS: ALBUMIN 2.6 g/dL (3.4-5.0); ANION GAP 10.6 mmol/L (8-16); BILIRUBIN - TOTAL 0.55 mg/dL (0.2-1.3); CALCIUM 8.4 mg/dL (8.5-10.1); CARBON DIOXIDE 26.7 mmol/L (21.0-32.0); CREATININE - SERUM 1.1 mg/dL (0.6-1.3); MAGNESIUM - SERUM 1.4 mg/dL (1.8-2.4); POTASSIUM - SERUM 4.3 mmol/L (3.5-5.1); PROTEIN - SERUM 5.7 g/dL (6.4-8.2)
--- NOTE | 2021-02-03 07:45 | NUR ---
PATIENT LAYING IN BED ON PHONE, LUNGS CTA, BOWEL SOUNDS ACTIVE, NO S/S OF DISTRESS, NO NEEDS VOICED, CONTINUE WITH PLAN OF CARE
--- NOTE | 2021-02-03 15:29 | NUR ---
POLEYARD SUPERVISOR WENT TO GET PATIENT ORTHOSTATIC BP AND PATIENT INQUIRED ON WHY WE ARE STILL DOING THIS BECAUSE HE SPOKE TO DOCTOR AND THEY CAME TO CONCLUSION BP DROPPING IS DUE TO BP MEDICATIONS PATIENT IS ON. PATIENT REFUSING ORTHOSTATICS. CONTINUE WITH PLAN OF CARE
--- NOTE | 2021-02-03 19:30 | NUR ---
PT SITTING UP IN BED WITHOUT DISTRESS, AOX4. IV RIGHT AC INFUSING NS @ 50. ENCOURAGED PT USE INCENTIVE SPIROMETER AND EDUCATED ON PURPOSE. PT USING INCENTIVE SPIROMETER WHILE AWAKE. SCDS ON BILAT. DENIES NEEDS AT THIS TIME. BED ALARM ON, CL IN REACH
--- NOTE | 2021-02-03 21:00 | NUR ---
PT TOOK HS MEDS WITHOUT DIFFICULTY. FSBS 141, NO COVERAGE PER SS. DENIES NEEDS, BED ALARM ON. CL IN REACH
--- NOTE | 2021-02-04 00:10 | NUR ---
PT LYING IN BED SLEEPING WITHOUT DISTRESS, CL IN REACH, BED ALARM ON
[2021-02-04 00:29] VITALS: BP 132/78
[2021-02-04 04:00] VITALS: BP 128/70
[2021-02-04 05:37] LABS: BASOPHILS 0.2 % (0-2); HEMATOCRIT 28.9 % (42.0-54.0); IMMATURE GRANULOCYTES 0.5 % (0-5); LYMPHOCYTE ABS# 1.71 10x3/uL (1.32-3.57); LYMPHOCYTES 15.7 % (15-50); MCH 26.9 pg (26.0-34.0); MCHC 31.1 g/dL (31.0-37.0); MCV 86.5 fL (80.0-100.0); MEAN PLATELET VOLUME 8.4 fL (7.4-10.4); MONOCYTES 5.9 % (2-11); NEUTROPHIL ABS# 8.28 10x3/uL (1.78-5.38); NEUTROPHILS 75.7 % (40-80); PLATELET COUNT 226 10x3/uL (130-400); RBC 3.34 10x6/uL (4.20-6.10); RDW 18.8 % (11.5-14.5); WBC 10.9 10x3/uL (4.8-10.8)
[2021-02-04 06:03] LABS: ALBUMIN 2.4 g/dL (3.4-5.0); ANION GAP 8.8 mmol/L (8-16); BILIRUBIN - TOTAL 0.34 mg/dL (0.2-1.3); CALCIUM 8.1 mg/dL (8.5-10.1); CARBON DIOXIDE 27.4 mmol/L (21.0-32.0); CREATININE - SERUM 1.1 mg/dL (0.6-1.3); MAGNESIUM - SERUM 1.4 mg/dL (1.8-2.4); POTASSIUM - SERUM 4.2 mmol/L (3.5-5.1); PROTEIN - SERUM 5.4 g/dL (6.4-8.2)
--- NOTE | 2021-02-04 07:00 | NUR ---
PT IS RESTING IN BED WITH EYES CLOSED. RESPIRATIONS ARE EVEN AND UNLABORED. PT IS EASILY AROUSED WITH VERBAL STIMULATION AND IS AAO X 4 UPON AROUSAL. PT DENIES PRESENCE OF PAIN/N/V AT THIS TIME. PT STATES THAT HE DOES NOT FEEL DIZZY "IF I DONT MOVE". SCDS ARE ON BLE. PIV TO RIGHT AC INFUSING PER ORDER WITHOUT COMPROMISE. ALL FALL PRECAUTIONS IN PLACE EXCEPT FOR YELLOW GOWN. PT REFUSES YELLOW GOWN AND REQUESTS TO STAY IN OWN CLOTHES. PT DENIES PRESENCE OF NUMBNESS/TINGLING TO BUE AND BLE. BED IS IN THE LOWEST POSITION. CALL LIGHT AND BEDSIDE TABLE ARE WITHIN REACH. ICENTICE SPIROMETER ENCOURAGED. SIDE RAILS X 2. PT DENIES FURTHER NEEDS. WILL CONT TO MONITOR.
[2021-02-04 08:37] VITALS: BP 135/75
[2021-02-04 13:14] VITALS: BP 131/67
[2021-02-04] MEDS ORDERED: AMIODARONE HCL200 MG PO (13:15)
[2021-02-04] MEDS ORDERED: FLORINEF 0.1 M0.1 MG PO (14:33)
--- NOTE | 2021-02-04 14:36 | MORECARE ---
CASE MANAGEMENT DISCHARGE SUMMARY PATIENT: NANO URBAN UNIT: [id number] ADM DATE: 02/03/21 AGE: 80 : 38 SEX: M ROOM/BED: D.2218 AUTHOR: VALE PEOPLES PHYSICIAN: REFERRING PHYSICIAN: DAVE MEADOWS MD DATE OF SERVICE: 02/04/21 Discharge Plan Patient Name: NANO URBAN [facility] [facility] 1940 Planned Disposition: Home or Self Care Anticipated Discharge Date: Discharge Date: Expected LOS: Initial Reviewer: [email or web address] Initial Review Date: 02/02/2021 Generated: 02/04/21 3:36 pm DCPIA - Discharge Planning Initial Assessment Updated by [email or web address]: Ana Stanley on 02/04/21 2:36 pm * Is the patient Alert and Oriented? Yes * How many steps to enter\exit or inside your home? * PCP PEEWEE * Pharmacy [facility] * Preadmission Environment Home with Family * ADLs Independent * Equipment Rolling Walker * List name and contact numbers for known caregivers / representatives who currently or will assist patient after discharge: GONZÁLEZ URBAN [phone] * Verbal permission to speak to the caregivers and representatives has been obtained from the patient. N/A * Community resources currently utilized None * Additional services required to return to the preadmission environment? No * Can the patient safely return to the preadmission environment? Yes * Has this patient been hospitalized within the prior 30 days at any hospital? No Patient Name: NANO URBAN Page 19561 at 1436 All edits/amendments must be made on the electronic document DICTATION DATE: 02/04/21 1436 MD PEDIATRIC ALLERGIST: PRASHANTH 02/04/21 1436 RPT#: [id number] DC DATE: STATUS: ADM IN [facility] [address] [place] [address] END OF REPORT
--- NOTE | 2021-02-04 14:45 | MORECARE ---
CASE MANAGEMENT DISCHARGE SUMMARY PATIENT: NANO URBAN UNIT: [id number] ADM DATE: 02/03/21 AGE: 80 : 38 SEX: M ROOM/BED: D.2218 AUTHOR: RICHELLEDOC PHYSICIAN: REFERRING PHYSICIAN: DAVE MEADOWS MD DATE OF SERVICE: 02/04/21 Discharge Plan Patient Name: NANO URBAN Facility: [facility]:[place] : 1940 Planned Disposition: Home or Self Care Anticipated Discharge Date: Discharge Date: Expected LOS: Initial Reviewer: [email or web address] Initial Review Date: 02/02/2021 Generated: 02/04/21 3:44 pm Comments DCP- Discharge Planning Updated by [email or web address]: Ana Stanley on 02/04/21 1:[address] Patient Name: NANO URBAN Admission Status: ER Accout number: [id number] Admission Date: 02-03-2021 : 1940 Admission Diagnosis: Attending: DAVE MEADOWS Current LOS: 1 Anticipated DC Date: Planned Disposition: Home or Self Care Primary Insurance: MEDICARE A & B Discharge Planning Comments: CM met with patient to complete initial dc planning assessment. CM educated patient on the CM role and verbal consent given by patient to complete assessment. Patient lives at home with his spouse where he states he is independent with his care. At discharge patient plans to return home and feels this is a safe discharge. CM discussed availability of home health, rehab services, and medical equipment. He has a walker and stated that he has been doing OP PT where he is walking 700 feet at home. Patient denied known discharge needs at this time. CM will continue to follow and will assist as needed with dc plans/needs Glass Silverer: Ana Stanley DCPIA - Discharge Planning Initial Assessment Updated by [email or web address]: Ana Stanley on 02/04/21 2:36 pm * Is the patient Alert and Oriented? Yes * How many steps to enter\exit or inside your home? * PCP PEEWEE * Pharmacy [facility] * Preadmission Environment Home with Family * ADLs Independent * Equipment Rolling Walker * List name and contact numbers for known caregivers / representatives who currently or will assist patient after discharge: GONZÁLEZ URBAN [phone] * Verbal permission to speak to the caregivers and representatives has been obtained from the patient. N/A * Community resources currently utilized None * Additional services required to return to the preadmission environment? No * Can the patient safely return to the preadmission environment? Yes * Has this patient been hospitalized within the prior 30 days at any hospital? No Last DP export: 02/04/21 1:36 p Patient Name: NANO URBAN Page [phone] at 1445 All edits/amendments must be made on the electronic document DICTATION DATE: 02/04/211443 LASER OPERATOR: PRASHANTH 02/04/21 1444 RPT#: [id number] DC DATE: STATUS: ADM IN [facility] [address] [place] [address] END OF REPORT
[2021-02-04 18:27] VITALS: BP 132/62
[2021-02-04 20:00] VITALS: BP 142/71; BP 99/50
[2021-02-05] VITALS: BP 134/71
[2021-02-05 04:00] VITALS: BP 138/78
--- NOTE | 2021-02-05 04:29 | NUR ---
ENTERED ROOM IN RESPONSE TO CL. PT REPORTS INCONTINENT VOID. STANDBY ASSIST TO RESTROOM, FULL LINEN CHANGE. PT BACK IN BED, YAMIL IN USE, CTM.
--- NOTE | 2021-02-05 04:47 | NUR ---
I have reviewed this patient and I concur with the Shift Assessment completed by the Licensed Practical Nurse today this shift.
[2021-02-05 05:08] LABS: BASOPHILS 0.2 % (0-2); EOSINOPHILS 3.7 % (0-7); HEMATOCRIT 28.5 % (42.0-54.0); HEMOGLOBIN 9.2 g/dL (13.5-17.5); IMMATURE GRANULOCYTES 0.3 % (0-5); LYMPHOCYTE ABS# 1.86 10x3/uL (1.32-3.57); LYMPHOCYTES 20.8 % (15-50); MCH 27.9 pg (26.0-34.0); MCHC 32.3 g/dL (31.0-37.0); MCV 86.4 fL (80.0-100.0); MEAN PLATELET VOLUME 8.2 fL (7.4-10.4); MONOCYTES 7.8 % (2-11); NEUTROPHILS 67.2 % (40-80); PLATELET COUNT 216 10x3/uL (130-400); RDW 18.6 % (11.5-14.5); WBC 8.9 10x3/uL (4.8-10.8)
[2021-02-05 05:34] LABS: ALBUMIN 2.4 g/dL (3.4-5.0); ALKALINE PHOSPHATASE 37 U/L (30-120); ALT (SGPT) 14 U/L (10-68); BILIRUBIN - TOTAL 0.34 mg/dL (0.2-1.3); CALC OSMOLALITY 277 mosm/kg (275-300); CALCIUM 8.1 mg/dL (8.5-10.1); CARBON DIOXIDE 28.5 mmol/L (21.0-32.0); CHLORIDE - SERUM 105 mmol/L (98-107); GLUCOSE 121 mg/dL (74-106); MAGNESIUM - SERUM 1.7 mg/dL (1.8-2.4); PROTEIN - SERUM 5.4 g/dL (6.4-8.2); SODIUM 138 mmol/L (136-145); UREA NITROGEN 15 mg/dL (7-18); eGFR NON AFRICAN AMERICAN 76 mL/min (90-120)
--- NOTE | 2021-02-05 09:00 | NUR ---
ALERT AND ORIENTED WITH SBA TO BATHROOM. STAES STILL DOES HAVE DIZZY SPELLS WHEN STANDING FOR LONGER PERIODS OF TIME. ENCOURAGES INCENTIVE SPIROMETRY AND DEMONSTRATES PROPER USE. ENCOURAGES TO USE CALL LIGHT FOR ASSSIT WITH IVF INFUSING AT PRESCRIBED RATE.
[2021-02-05 09:23] VITALS: BP 142/76
--- NOTE | 2021-02-05 09:41 | EC ---
PATIENT:NANO URBAN DATE OF SERVICE: 02/03/21 SEX: M MEDICAL RECORD: [id number] DATE OF : 36 LOCATION:[facility] AGE OF PATIENT: 80 ADMISSION DATE: 02/03/21 REFERRING PHYSICIAN: INTERPRETING PHYSICIAN: ROMEO CONNELL MD ECHOCARDIOGRAM REPORT ECHO CHARGES 4 ECHO COMPLETE Date: 02/03/21 CLINICAL DIAGNOSIS: SYNCOPE ECHOCARDIOGRAPHIC MEASUREMENTS (adult normal given) AC root (d.<3.7cm) 4.0 cm LV Septum d (<1.2 cm> 0.9 cm Valve Excursion 1.4 cm LV Septum (systole) 1.6 cm Left Atria (s.<4.0cm> 4.1 cm LVPW d(<1.2cm) 1.3 cm RV (d.<2.3cm) 3.7 cm LVPW (sytole) 1.5 cm LV diastole(<5.6CM) 5.1 cm MV E-F(>70mm/sec) cm LV systole 3.3 cm LVOT Diameter 2.0 cm MV exc.(>10mm) 0.7 cm Est.ejection fraction (50-75%) % DOPPLER: LVIT cm/sec A 88 cm/sec E 51 cm/sec LA cm/sec RVSP 16 mmHg LVOT 97 cm/sec AOP1/2T m/s Asc. Ao 111 cm/sec RVOT 57 cm/sec RA cm/sec PA 56 cm/sec AV Gradient Peak 4.9 mmHg AV Mean 2.5 mmHg AV Area 2.9 cm MV Gradient Peak 4.2 mmHg MV Mean 1.5 mmHg MV Area cm COMMENTS: Account Development Manager: Thong RICARDO Director Inbound Sales: 3 Dr. Castellano TAPE# Pericardial Effusion N DATE OF SERVICE: Adequate 2D, color-flow imaging, spectral Doppler, and M-Mode FINDINGS: No LVH. LV internal dimension is normal. Wall motion is normal. EF is greater than or equal to 55%. Aortic valve sclerosis without evidence of stenosis by Doppler interrogation. Left atrium is upper limits of normal to mildly dilated at 4.1 cm. Mitral valve shows no prolapse. Trace MR. Right-sided chambers are grossly normal. Trace TR. ECHOCARDIOGRAM REPORT [id number] NANO URBAN TRANSINT:[id number] Voice Confirmation ID: [id number] DOCUMENT ID: [id number] ROMEO CONNELL MD at 0941 CC: [id number] DICTATION DATE: 02/04/21827 BINDER CUTTER: 02/04/21 09 ADM IN [place] [id number] [place] [id number]
[2021-02-05 12:34] VITALS: BP 133/63
--- NOTE | 2021-02-05 13:12 | MORECARE ---
CASE MANAGEMENT DISCHARGE SUMMARY PATIENT: NANO URBAN UNIT: [id number] ADM DATE: 02/03/21 AGE: 80 : 38 SEX: M ROOM/BED: D.2218 AUTHOR: RICHELLEDOC PHYSICIAN: REFERRING PHYSICIAN: DAVE MEADOWS MD DATE OF SERVICE: 02/05/21 Discharge Plan Patient Name: NANO URBAN Facility: [facility]:[place] : 1940 Planned Disposition: Home or Self Care Anticipated Discharge Date: Discharge Date: Expected LOS: Initial Reviewer: [email or web address] Initial Review Date: 02/02/2021 Generated: 02/05/21 2:11 pm Comments DCP- Discharge Planning Updated by [email or web address]: Ana Stanley on 02/04/21 1:[address] Patient Name: NANO URBAN Admission Status: ER Accout number: [id number] Admission Date: 02-03-2021 : 1940 Admission Diagnosis: Attending: DAVE MEADOWS Current LOS: 1 Anticipated DC Date: Planned Disposition: Home or Self Care Primary Insurance: MEDICARE A & B Discharge Planning Comments: CM met with patient to complete initial dc planning assessment. CM educated patient on the CM role and verbal consent given by patient to complete assessment. Patient lives at home with his spouse where he states he is independent with his care. At discharge patient plans to return home and feels this is a safe discharge. CM discussed availability of home health, rehab services, and medical equipment. He has a walker and stated that he has been doing OP PT where he is walking 700 feet at home. Patient denied known discharge needs at this time. CM will continue to follow and will assist as needed with dc plans/needs Vp Clinical: Ana Stanley DCPIA - Discharge Planning Initial Assessment Updated by [email or web address]: Ana Stanley on 02/04/21 2:36 pm * Is the patient Alert and Oriented? Yes * How many steps to enter\exit or inside your home? * PCP PEEWEE * Pharmacy [facility] * Preadmission Environment Home with Family * ADLs Independent * Equipment Rolling Walker * List name and contact numbers for known caregivers / representatives who currently or will assist patient after discharge: GONZÁLEZ URBAN [phone] * Verbal permission to speak to the caregivers and representatives has been obtained from the patient. N/A * Community resources currently utilized None * Additional services required to return to the preadmission environment? No * Can the patient safely return to the preadmission environment? Yes * Has this patient been hospitalized within the prior 30 days at any hospital? No Last DP export: 02/04/21 1:45 p Patient Name: NANO URBAN Page 11046 at 1312 All edits/amendments must be made on the electronic document DICTATION DATE: 02/05/21 131 DISPATCHER TUGBOAT: PRASHANTH 02/05/21 1312 RPT#: [id number] DC DATE: STATUS: ADM IN [facility] [address] [place] [address] END OF REPORT
--- NOTE | 2021-02-05 13:20 | MORECARE ---
CASE MANAGEMENT DISCHARGE SUMMARY PATIENT: NANO URBAN UNIT: [id number] ADM DATE: 02/03/21 AGE: 80 : 38 SEX: M ROOM/BED: D.2218 AUTHOR: RICHELLE,DOC PHYSICIAN: REFERRING PHYSICIAN: DAVE MEADOWS MD DATE OF SERVICE: 02/05/21 Discharge Plan Patient Name: NANO URBAN Facility: [facility]:[place] : 1940 Planned Disposition: Home or Self Care Anticipated Discharge Date: Discharge Date: Expected LOS: Initial Reviewer: [email or web address] Initial Review Date: 02/02/2021 Generated: 02/05/21 2:19 pm Comments DCP- Discharge Planning Updated by [email or web address]: Ana Stanley on 02/05/21 12:[address] PATIENT DID NOT DISCHARGE BECAUSE HIS WANTED HIM TO GO TO INPATIENT REHAB [facility] WILL ACCEPT THE PATIENT AND HE WILL DISCHARGE THERE TODAY DCP- Discharge Planning Updated by [email or web address]: Ana Stanley on 02/04/21 1:[address] Patient Name: NANO URBAN Admission Status: ER Accout number: [id number] Admission Date: 02-03-2021 : 1940 Admission Diagnosis: Attending: DAVE MEADOWS Current LOS: 1 Anticipated DC Date: Planned Disposition: Home or Self Care Primary Insurance: MEDICARE A & B Discharge Planning Comments: CM met with patient to complete initial dc planning assessment. CM educated patient on the CM role and verbal consent given by patient to complete assessment. Patient lives at home with his spouse where he states he is independent with his care. At discharge patient plans to return home and feels this is a safe discharge. CM discussed availability of home health, rehab services, and medical equipment. He has a walker and stated that he has been doing OP PT where he is walking 700 feet at home. Patient denied known discharge needs at this time. CM will continue to follow and will assist as needed with dc plans/needs Double End Sewer: Ana Stanley DCPIA - Discharge Planning Initial Assessment Updated by [email or web address]: Ana Stanley on 02/04/21 2:36 pm * Is the patient Alert and Oriented? Yes * How many steps to enter\exit or inside your home? * PCP PEEWEE * Pharmacy [facility] * Preadmission Environment Home with Family * ADLs Independent * Equipment Rolling Walker * List name and contact numbers for known caregivers / representatives who currently or will assist patient after discharge: GONZÁLEZ URBAN [phone] * Verbal permission to speak to the caregivers and representatives has been obtained from the patient. N/A * Community resources currently utilized None * Additional services required to return to the preadmission environment? No * Can the patient safely return to the preadmission environment? Yes * Has this patient been hospitalized within the prior 30 days at any hospital? No Last DP export: 02/05/21 12:12 p Patient Name: NANO URBAN Page [phone] at 1320 All edits/amendments must be made on the electronic document DICTATION DATE: 02/05/21 1320 DINKEY ENGINE MECHANIC: PRASHANTH 02/05/21 1320 RPT#: [id number] DC DATE: STATUS: ADM IN [facility] [address] [place] [address] END OF REPORT
--- NOTE | 2021-02-05 13:30 | NUR ---
PATIENT VERBALIZED UNDERSTANDING OF DISCHARGE INSTRUCTIONS WITH REPORT CALLED TO XENIA YOUNG. STABLE AT TIME OF DISCHARGE.
--- NOTE | 2021-02-05 13:36 | MORECARE ---
CASE MANAGEMENT DISCHARGE SUMMARY PATIENT: NANO URBAN UNIT: [id number] ADM DATE: 02/03/21 AGE: 80 : 38 SEX: M ROOM/BED: D.2218 AUTHOR: VALE PEOPLES PHYSICIAN: REFERRING PHYSICIAN: DAVE MEADOWS MD DATE OF SERVICE: 02/05/21 Discharge Plan Patient Name: NANO URBAN Facility: [facility]:[place] : 1940 Planned Disposition: Home or Self Care Anticipated Discharge Date: Discharge Date: Expected LOS: Initial Reviewer: [email or web address] Initial Review Date: 02/02/2021 Generated: 02/05/21 2:36 pm Comments DCP- Discharge Planning Updated by [email or web address]: Ana Stanley on 02/05/21 12:[address] I CALLED THE PATIENTS TO LET HER KNOW THAT HE WAS BEING DISCHARGED TO INPATIENT REHAB TODAY DCP- Discharge Planning Updated by [email or web address]: Ana Stanley on 02/05/21 12:[address] PATIENT DID NOT DISCHARGE BECAUSE HIS WANTED HIM TO GO TO INPATIENT REHAB [facility] WILL ACCEPT THE PATIENT AND HE WILL DISCHARGE THERE TODAY DCP- Discharge Planning Updated by [email or web address]: Ana Stanley on 02/04/21 1:[address] Patient Name: NANO URBAN Admission Status: ER Accout number: [id number] Admission Date: 02-03-2021 : 1940 Admission Diagnosis: Attending: DAVE MEADOWS Current LOS: 1 Anticipated DC Date: Planned Disposition: Home or Self Care Primary Insurance: MEDICARE A & B Discharge Planning Comments: CM met with patient to complete initial dc planning assessment. CM educated patient on the CM role and verbal consent given by patient to complete assessment. Patient lives at home with his spouse where he states he is independent with his care. At discharge patient plans to return home and feels this is a safe discharge. CM discussed availability of home health, rehab services, and medical equipment. He has a walker and stated that he has been doing OP PT where he is walking 700 feet at home. Patient denied known discharge needs at this time. CM will continue to follow and will assist as needed with dc plans/needs Darkroom Technician: Ana Stanley DCPIA - Discharge Planning Initial Assessment Updated by [email or web address]: Ana Stanley on 02/04/21 2:36 pm * Is the patient Alert and Oriented? Yes * How many steps to enter\exit or inside your home? * PCP PEEWEE * Pharmacy [facility] * Preadmission Environment Home with Family * ADLs Independent * Equipment Rolling Walker * List name and contact numbers for known caregivers / representatives who currently or will assist patient after discharge: GONZÁLEZ URBAN [phone] * Verbal permission to speak to the caregivers and representatives has been obtained from the patient. N/A * Community resources currently utilized None * Additional services required to return to the preadmission environment? No * Can the patient safely return to the preadmission environment? Yes * Has this patient been hospitalized within the prior 30 days at any hospital? No Last DP export: 02/05/21 12:20 p Patient Name: NANO URBAN Page [phone] at 1336 All edits/amendments must be made on the electronic document DICTATION DATE: 02/05/21 1336 SCHOOL CROSSING GUARD SUPERVISOR: PRASHANTH 02/05/21 1336 RPT#: [id number] DC DATE: STATUS: ADM IN [facility] [address] [place] [address] END OF REPORT
--- NOTE | 2021-02-08 08:24 | MORECARE ---
CASE MANAGEMENT DISCHARGE SUMMARY PATIENT: NANO URBAN UNIT: [id number] ADM DATE: 02/03/21 AGE: 80 : 38 SEX: M ROOM/BED: D.2218 AUTHOR: RICHELLEDOC PHYSICIAN: REFERRING PHYSICIAN: DAVE MEADOWS MD DATE OF SERVICE: 02/08/21 Discharge Plan Patient Name: NANO URBAN Facility: [facility]:[place] : 1940 Planned Disposition: Home or Self Care Anticipated Discharge Date: Discharge Date: 02/05/2021 Expected LOS: Initial Reviewer: [email or web address] Initial Review Date: 02/02/2021 Generated: 02/08/21 9:23 am Comments DCP- Discharge Planning Updated by [email or web address]: Ana Stanley on 02/05/21 11:[address] I CALLED THE PATIENTS TO LET HER KNOW THAT HE WAS BEING DISCHARGED TO INPATIENT REHAB TODAY DCP- Discharge Planning Updated by [email or web address]: Ana Stanley on 02/05/21 11:[address] PATIENT DID NOT DISCHARGE BECAUSE HIS WANTED HIM TO GO TO INPATIENT REHAB [facility] WILL ACCEPT THE PATIENT AND HE WILL DISCHARGE THERE TODAY DCP- Discharge Planning Updated by [email or web address]: Ana Stanley on 02/04/21 12:[address] Patient Name: NANO URBAN Admission Status: ER Accout number: [id number] Admission Date: 02-03-2021 : 1940 Admission Diagnosis: Attending: DAVE MEADOWS Current LOS: 1 Anticipated DC Date: Planned Disposition: Home or Self Care Primary Insurance: MEDICARE A & B Discharge Planning Comments: CM met with patient to complete initial dc planning assessment. CM educated patient on the CM role and verbal consent given by patient to complete assessment. Patient lives at home with his spouse where he states he is independent with his care. At discharge patient plans to return home and feels this is a safe discharge. CM discussed availability of home health, rehab services, and medical equipment. He has a walker and stated that he has been doing OP PT where he is walking 700 feet at home. Patient denied known discharge needs at this time. CM will continue to follow and will assist as needed with dc plans/needs Print Cutter: Ana Stanley DCPIA - Discharge Planning Initial Assessment Updated by [email or web address]: Ana Stanley on 02/04/21 2:36 pm * Is the patient Alert and Oriented? Yes * How many steps to enter\exit or inside your home? * PCP PEEWEE * Pharmacy [facility] * Preadmission Environment Home with Family * ADLs Independent * Equipment Rolling Walker * List name and contact numbers for known caregivers / representatives who currently or will assist patient after discharge: GONZÁLEZ URBAN [phone] * Verbal permission to speak to the caregivers and representatives has been obtained from the patient. N/A * Community resources currently utilized None * Additional services required to return to the preadmission environment? No * Can the patient safely return to the preadmission environment? Yes * Has this patient been hospitalized within the prior 30 days at any hospital? No Last DP export: 02/05/21 11:36 a Patient Name: NANO URBAN Page [phone] at 0824 All edits/amendments must be made on the electronic document DICTATION DATE: 02/08/21822 PLAYER MANAGER: PRASHANTH 02/08/21822 RPT#: [id number] DC DATE:02/05/21 STATUS: DIS IN [facility] [address] [place] [address] END OF REPORT
== END 2021-02-05 13:30 | DRG 312 ==
LOC: D.ER 10:56 → D.MS 14:50 → OBSVTIME 14:50 → D.MS 15:17
PROVIDERS: Family Medicine; ADMIT Family Medicine; ATTEND Family Medicine
DX: I95.1 Orthostatic hypotension (principal); Z91.14 Patient's other noncompliance with medication regimen; I48.91 Unspecified atrial fibrillation; E03.9 Hypothyroidism, unspecified; I10 Essential (primary) hypertension; K21.9 Gastro-esophageal reflux disease without esophagitis; E11.9 Type 2 diabetes mellitus without complications; N40.0 Benign prostatic hyperplasia without lower urinary tract symptoms

== ENCOUNTER 2021-02-05 13:54 | Inpatient (IN) | payer MEDICARE, OTHER ==
[~2021-02-05] VITALS: Ht 185.4 cm; Wt 91.6 kg
[~2021-02-05 13:54] MED LIST changes: +FLORINEF 0.1 M0.1 MG PO
[2021-02-05 14:01] VITALS: BP 143/72
[2021-02-05 14:25] VITALS: BP 143/72; BMI 26.7
--- NOTE | 2021-02-05 15:34 | NUR ---
PATIENT ADMITTED TO REHAB FROM ACUTE FLOOR. DR. VIDES IS HIS PCP AND DME AT HOME IS A ROLLING WALKER. DISCHARGE PLANS ARE FOR HIME TO RETURN HOME WITH HIS FAMILY. WILL CONTINUE TO FOLLOW WITH PATIENT.
--- NOTE | 2021-02-05 17:22 | NUR ---
SCABS NOTED TO RUE ON FA AND BICEP
[2021-02-05 20:10] VITALS: BP 181/87
--- NOTE | 2021-02-05 20:25 | NUR ---
PATIENT RECEIVED SITTING UP IN BED WATCHING TV. ASSESSMENT & VITAL SIGNS DONE. NO C/O PAIN OR DISTRESS. PATIENT STAND BY ASSIST WITH WHEELCHAIR BEHIND TO COMMODE. VOID ONLY. NO SYNCOPE OR DIZZINESS AT THIS TIME. BED LOW. CALL LIGHT WITHIN REACH. WILL CONTINUE TO MONITOR.
--- NOTE | 2021-02-06 02:13 | NUR ---
I have reviewed this patient and I concur with the Shift Assessment completed by the Licensed Practical Nurse today this shift.
--- NOTE | 2021-02-06 03:48 | NUR ---
PATIENT EYES CLOSED. RESPIRATIONS 18 & EVEN. BED LOW. ALARM ON. CALL LIGHT & BEDSIDE TABLE WITHIN REACH. WILL CONTINUE TO MONITOR.
[2021-02-06 05:43] LABS: BASOPHILS 0.2 % (0-2); EOSINOPHILS 3.4 % (0-7); HEMATOCRIT 31.3 % (42.0-54.0); HEMOGLOBIN 10.1 g/dL (13.5-17.5); IMMATURE GRANULOCYTES 0.4 % (0-5); LYMPHOCYTES 14.2 % (15-50); MCH 27.8 pg (26.0-34.0); MCHC 32.3 g/dL (31.0-37.0); MCV 86.2 fL (80.0-100.0); MEAN PLATELET VOLUME 8.3 fL (7.4-10.4); MONOCYTES 7.3 % (2-11); NEUTROPHIL ABS# 7.84 10x3/uL (1.78-5.38); NEUTROPHILS 74.5 % (40-80); PLATELET COUNT 221 10x3/uL (130-400); RBC 3.63 10x6/uL (4.20-6.10); RDW 18.3 % (11.5-14.5); WBC 10.5 10x3/uL (4.8-10.8)
[2021-02-06 05:53] LABS: ANION GAP 11.4 mmol/L (8-16); CALCIUM 8.5 mg/dL (8.5-10.1); CARBON DIOXIDE 28.6 mmol/L (21.0-32.0); CREATININE - SERUM 1.1 mg/dL (0.6-1.3)
[2021-02-06 08:00] VITALS: BP 119/61
[2021-02-06 08:15] VITALS: Ht 185.4 cm; Wt 91.6 kg
--- NOTE | 2021-02-06 11:09 | NUR ---
PT RESTING IN BED WITH EYES OPEN CALL LIGHT IN REACH WILL MONITER
--- NOTE | 2021-02-06 17:47 | NUR ---
PT RESTING IN BED WITH EYES OPEN CALL LIGHT IN REACH WILL MONITER
--- NOTE | 2021-02-06 19:23 | NUR ---
PATIENT RECEIVED SITTING UP IN CHAIR AT BEDSIDE. ASSESSMENT & VITAL SIGNS DONE. NO C/O PAIN OR DISTRESS. PATIENT STANDBY ASSIST INTO WHEELCHAIR. PATIENT TOILETED. VOID ONLY. RETURNED TO LOW BED. CALL LIGHT WITHIN REACH. ALARM ON. WILL CONTINUE TO MONITOR.
[2021-02-06 20:13] VITALS: BP 135/74
--- NOTE | 2021-02-06 20:45 | NUR ---
PATIENT USED CALL LIGHT FOR ASSIST. PATIENT PROPELLED SELF IN WHEELCHAIR. VOID ONLY. RETURNED TO LOW BED. ALARM ON. BEDSIDE TABLE, WATER, & CALL LIGHT WITHIN REACH. WILL CONTINUE TO [facility].
--- NOTE | 2021-02-07 04:15 | NUR ---
I have reviewed this patient and I concur with the Shift Assessment completed by the Licensed Practical Nurse today this shift.
--- NOTE | 2021-02-07 04:39 | NUR ---
PATIENT EYES CLOSED. RESPIRATIONS 20 & EVEN. BED LOW. ALARM ON. CALL LIGHT WITHIN REACH. WILL CONTINUE TO MONITOR.
--- NOTE | 2021-02-07 08:00 | NUR ---
PT RESTING IN BED WITH EYES OPEN CALL LIGHT IN REACH NO PROBLEMS WILL MONITER
--- NOTE | 2021-02-07 18:36 | NUR ---
PT UP IN BEDSIDE CHAIR IN ROOM WILL MONITER
--- NOTE | 2021-02-07 19:06 | NUR ---
PATIENT RECEIVED SITTING UP ION CHAIR AT BEDSIDE. ASSESSMENT & VITAL SIGNS DONE. NO C/O PAIN OR DISTRESS AT THIS TIME. ALARM ON. CALL LIGHT, BEDSIDE TABLE, & PHONE WITHIN REACH. WILL CONTINUE TO MONITOR.
[2021-02-07 19:55] VITALS: BP 134/74
--- NOTE | 2021-02-08 01:52 | NUR ---
I have reviewed this patient and I concur with the Shift Assessment completed by the Licensed Practical Nurse today this shift.
--- NOTE | 2021-02-08 02:20 | NUR ---
PATIENT EYES CLOSED. RESPIRATIONS 18 & EVEN. BED LOW. ALARM ON. CALL LIGHT WITHIN REACH. WILL CONTINUE TO MONITOR.
--- NOTE | 2021-02-08 02:24 | NUR ---
NO ADVERSE REACTION TO VIBRAMYCIN NOTED AT THIS TIME. WILL CONTINUE TO MONITOR.
--- NOTE | 2021-02-08 02:45 | NUR ---
PATIENT USED CALL LIGHT FOR ASSIST. PATIENT STANDBY INTO WHEELCHAIR. PATIENT PROPELLED SELF INTO BATHROOM. STOOD UP & SAT DOWN ON COMMODE. PATIENT HAD VOID & BM. PATIENT STOOD UP & SAT DOWN INTO WHEELCHAIR. WASHED HIS HANDS & RETURNED TO LOW BED. ALARM ON. CALL LIGHT WITHIN REACH. WILL CONTINUE TO MONITOR.
--- NOTE | 2021-02-08 06:03 | NUR ---
PATIENT WORKING WITH THERAPY. BP SITTING 117/72. 85/44 STANDING. RIGHT ARM. AFTER AMBULATING WITH WALKER BP 126/54 SITTING. HAD SYNCOPE WHILE STANDING FOR BP. PATIENT UNABLE TO STAND UP FOR BP. PATIENT AMBULATED AGAIN BP 96/44. SITTING 101/55.
[2021-02-08 07:21] VITALS: BP 99/48
--- NOTE | 2021-02-08 08:27 | NUR ---
HE IS SETTING UP IN THE CHAIR. HIS IS AT THE BEDSIDE. THEY TALKED TO DR. VIDES ABOUT HIS MEDS, ADJUSTED SOME OF HIS MEDICATIONS. HE IS USING THE WHEELCHAIR TO GO TO THE BATHROOM. THE CALL LIGHT IS WITHIN REACH AND THE CHAIR ALARM IS ON.
--- NOTE | 2021-02-08 10:02 | NUR ---
Nutrition Follow-up: Diet: Diabetic PO intake: 100% x last 6 meals Last BM: 02/08/21 Wt: 202# (02/06/21) Meds noted: MVI, fludrocortisone, ferrous sulfate, abx, januvia, metformin, SSI Labs noted: POC Glu 134(H) Recommend continue current diet. RD will follow-up within 7 days.
[2021-02-08 20:20] VITALS: BP 180/95
--- NOTE | 2021-02-09 01:10 | NUR ---
I have reviewed this patient and I concur with the Shift Assessment completed by the Licensed Practical Nurse today this shift.
--- NOTE | 2021-02-09 02:11 | NUR ---
PT RESTING WITH EYES CLOSED. RESPIRATIONS EVEN AND UNLABORED. BED IS LOW, BED ALARM ON AND CALL LIGHT WITHIN REACH.
[2021-02-09 07:36] VITALS: BP 146/77
--- NOTE | 2021-02-09 08:00 | NUR ---
HE IS TALKING WITH PT, ASKING QUESTIONS ABOUT HIS MEDICATIONS AND THE TIMING OF HIS THERAPY. BOTH THE THERAPIST AND MYSELF WERE UNABLE TO ANSWER HIS QUESTION, HE STATES HE WILL ASK THE DOCTOR. HE IS SETTING UP IN THE CHAIR. THE CALL LIGHT IS WITH IN AND THE BED ALARM IS ON.
--- NOTE | 2021-02-09 08:45 | NUR ---
HE TOOK HIS MEDICATIONS WITHOUT ANY PROBLEMS. THE CALL LIGHT IS WITHIN REACH AND THE BED ALARM IS ON.
--- NOTE | 2021-02-09 19:21 | NUR ---
AWAKE AND ALERT. RESTING IN BED WITH RESPIRATIONS UNLABORED. NO DISTRESS NOTED.
[2021-02-09 20:34] VITALS: BP 151/74
--- NOTE | 2021-02-10 01:31 | NUR ---
SLEEPING WITH NO DISTRESS NOTED. CALL LIGHT IN REACH.
--- NOTE | 2021-02-10 05:19 | NUR ---
QUIET HOURS. NO ACUTE CHANGES IN CONDITION THIS SHIFT. RESTING IN BED WITH NO DISTRESS NOTED.
[2021-02-10 06:21] LABS: BASOPHILS 0.3 % (0-2); EOSINOPHILS 3.6 % (0-7); HEMATOCRIT 28.5 % (42.0-54.0); IMMATURE GRANULOCYTES 0.3 % (0-5); LYMPHOCYTE ABS# 1.58 10x3/uL (1.32-3.57); LYMPHOCYTES 13.6 % (15-50); MCH 27.4 pg (26.0-34.0); MCHC 31.6 g/dL (31.0-37.0); MCV 86.9 fL (80.0-100.0); MEAN PLATELET VOLUME 8.6 fL (7.4-10.4); MONOCYTES 6.9 % (2-11); NEUTROPHIL ABS# 8.77 10x3/uL (1.78-5.38); NEUTROPHILS 75.3 % (40-80); PLATELET COUNT 259 10x3/uL (130-400); RBC 3.28 10x6/uL (4.20-6.10); WBC 11.6 10x3/uL (4.8-10.8)
[2021-02-10 07:14] LABS: CALC OSMOLALITY 271 mosm/kg (275-300); CALCIUM 8.8 mg/dL (8.5-10.1); CARBON DIOXIDE 27.8 mmol/L (21.0-32.0); CHLORIDE - SERUM 101 mmol/L (98-107); GLUCOSE 95 mg/dL (74-106); POTASSIUM - SERUM 3.8 mmol/L (3.5-5.1); SODIUM 135 mmol/L (136-145); THYROID STIMULATING HORMONE 6.27 uIU/mL (0.36-3.74); UREA NITROGEN 18 mg/dL (7-18); eGFR NON AFRICAN AMERICAN 76 mL/min (90-120)
[2021-02-10 08:00] VITALS: BP 103/65
--- NOTE | 2021-02-10 08:00 | NUR ---
PATIENT IS ALERT/ORIENT. CALL LIGHT WITHIN REACH. VOICES NO NEEDS AT THIS TIME. WILL CONTINUE WITH PLAN OF CARE
--- NOTE | 2021-02-10 10:33 | NUR ---
PATIENT IN REHAB ROOM. WORKING WITH PHYSICAL THERAPIST. DENIES ANY PAIN/DISC AT THIS TIME.
--- NOTE | 2021-02-10 13:45 | NUR ---
CARE TEAM MEETING: PATIENT IS PROGRESSING IN THERAPY . HIS TENATIVE DC DATE IS 02/16/21. WILL CONTINUE TO FOLLOW WITH PATIENT AND WILL ASSIST WITH DC NEEDS.
--- NOTE | 2021-02-10 14:06 | NUR ---
I have reviewed this patient and I concur with the Shift Assessment completed by the Licensed Practical Nurse today this shift.
--- NOTE | 2021-02-10 14:53 | NUR ---
PATIENT IN RESTING IN RECLINER IN ROOM AFTER THERAPY. CALL LIGHT WITHIN REACH
[2021-02-10 20:30] VITALS: BP 146/79
--- NOTE | 2021-02-11 01:34 | NUR ---
PT CALLED FOR STANDBY ASSISTANCE TO THE RESTROOM. HE WAS INCONTINENT OF URINE. OFFERED HIM A URINAL AND HE STATED HE DID NOT WANT ONE, THAT HE WAS NOT GOOD AT USING IT AND WOULD END UP URINATING ALL OVER THE BED. GAVE HIM A NEW BRIEF AND DID A PARTIAL LINEN CHANGE. AFTER GETTING BACK IN BED HE DENIED PAIN OR NEEDS. BED ALARM IS ON, BED IS LOW AND CALL LIGHT IS WITHIN REACH.
--- NOTE | 2021-02-11 07:28 | NUR ---
PT RESTING IN BED WITH EYES OPEN CALL LIGHT IN REACH PROBLEMS WILL MONITER
--- NOTE | 2021-02-11 18:12 | NUR ---
PT RESTING IN BED WITH EYES OPEN CALL LIGHT IN REACH WILL MONITER
[2021-02-11 19:58] VITALS: BP 149/85
--- NOTE | 2021-02-12 00:43 | NUR ---
PT RESTING WITH EYES CLOSE. RESPIRATIONS EVEN AND UNLABORED. HIS BED IS LOW, BED ALARM ON AND CALL LIGHT WITHIN REACH.
[2021-02-12 06:59] LABS: BASOPHILS 0.2 % (0-2); EOSINOPHILS 2.9 % (0-7); HEMATOCRIT 29.7 % (42.0-54.0); HEMOGLOBIN 9.4 g/dL (13.5-17.5); IMMATURE GRANULOCYTES 0.3 % (0-5); LYMPHOCYTE ABS# 1.85 10x3/uL (1.32-3.57); LYMPHOCYTES 14.7 % (15-50); MCH 27.6 pg (26.0-34.0); MCHC 31.6 g/dL (31.0-37.0); MCV 87.4 fL (80.0-100.0); MEAN PLATELET VOLUME 8.4 fL (7.4-10.4); MONOCYTES 7.4 % (2-11); NEUTROPHIL ABS# 9.37 10x3/uL (1.78-5.38); NEUTROPHILS 74.5 % (40-80); PLATELET COUNT 242 10x3/uL (130-400); RDW 17.7 % (11.5-14.5); WBC 12.6 10x3/uL (4.8-10.8)
[2021-02-12 07:07] LABS: ANION GAP 9.7 mmol/L (8-16); CALCIUM 8.7 mg/dL (8.5-10.1); CARBON DIOXIDE 27.5 mmol/L (21.0-32.0); CREATININE - SERUM 1.1 mg/dL (0.6-1.3); POTASSIUM - SERUM 4.2 mmol/L (3.5-5.1)
--- NOTE | 2021-02-12 07:28 | NUR ---
PT RESTING IN BED WIHT EYES OPEN CALL LIGHT IN REACH NO PROBLEMS WILL MONITER
[2021-02-12 13:55] VITALS: BP 137/68
--- NOTE | 2021-02-12 18:42 | NUR ---
PT RESTING IN BED WITH EYES OPEN CALL LIGHT IN REACH NO PROBLEMS WILL MONITER
[2021-02-12 20:03] VITALS: BP 185/89
--- NOTE | 2021-02-12 20:20 | NUR ---
PATIENT RECEIVED LAYING IN BED WATCHING TV. ASSESSMENT & VITAL SIGNS DONE. NO C/O PAIN OR DISTRESS AT THIS TIME. BED LOW. ALARM ON. CALL LIGHT WITHIN REACH. WILL CONTINUE TO MONITOR.
--- NOTE | 2021-02-13 02:15 | NUR ---
PATIENT USED CALL LIGHT FOR ASSIST. PATIENT TOILETED. URINATE COLECTED AT THIS TIME. PATIENT RETURNED TO LOW BED. ALARM ON. CALL LIGHT WITHIN REACH. WILL CONTINUE TO MONITOR.
--- NOTE | 2021-02-13 04:12 | NUR ---
I have reviewed this patient and I concur with the Shift Assessment completed by the Licensed Practical Nurse today this shift.
[2021-02-13 04:41] LABS: BILIRUBIN NEGATIVE (NEGATIVE); KETONE NEGATIVE (NEGATIVE); NITRITE NEGATIVE (NEGATIVE); UROBILINOGEN NORMAL mg/dL (< 2)
--- NOTE | 2021-02-13 08:30 | NUR ---
HE IS SETTING UP IN THE CHAIR. HE HAS BIALTERAL LOWER LEG EDEMA, HE HAS HIS LEG ELEVATED IN THE RECLINING CHAIR. THE CALL LIGHT IS WITHIN REACH AND THE BED ALARM IS ON.
[2021-02-13 09:03] VITALS: BP 109/50
[2021-02-13 19:00] VITALS: BP 141/77
--- NOTE | 2021-02-13 19:44 | NUR ---
PATIENT RECEIVED SITTING UP IN BED. ASSESSMENT & VITAL SIGNS DONE. PATIENT STANDBY ASSIST IN & OUT OF WHEELCHAIR. ON & OFF COMMODE. PATIENT HAD VOID & SMALL BM. RETURNED TO LOW BED. ALARM ON. CALL LIGHT WITHIN REACH. WILL CONTINUE TO MONITOR.
--- NOTE | 2021-02-14 03:31 | NUR ---
PATIENT EYES CLOSED. RESPIRATIONS 20 & EVEN. BED LOW. BEDSIDE TABLE & CALL LIGHT WITHIN REACH. ALARM ON. WILL CONTINUE TO MONITOR.
--- NOTE | 2021-02-14 08:30 | NUR ---
HE IS SETTING UP IN THE RECLINER WITH HIS FEET UP. C/O CONSTIPATION, MIRILAX GIVEN. THE CALL LIGHT IS WITHIN REACH AND THE CHAIR ALARM IS ON.
[2021-02-14 08:48] VITALS: BP 113/59
[2021-02-14 19:00] VITALS: BP 143/66
--- NOTE | 2021-02-14 19:30 | NUR ---
PATIENT RECEIVED SITTING UP IN RECLINER. ASSESSMENT & VITAL SIGNS DONE. NO C/O PAIN OR DISTRESS. CALL LIGHT & BEDSIDE TABLE WITHIN REACH. WILL CONTINUE TO MONITOR.
--- NOTE | 2021-02-15 01:34 | NUR ---
I have reviewed this patient and I concur with the Shift Assessment completed by the Licensed Practical Nurse today this shift.
[2021-02-15 07:30] LABS: BASOPHILS 0.2 % (0-2); EOSINOPHILS 2.6 % (0-7); HEMATOCRIT 29.7 % (42.0-54.0); HEMOGLOBIN 9.4 g/dL (13.5-17.5); IMMATURE GRANULOCYTES 0.3 % (0-5); LYMPHOCYTE ABS# 1.97 10x3/uL (1.32-3.57); LYMPHOCYTES 17.2 % (15-50); MCH 27.8 pg (26.0-34.0); MCHC 31.6 g/dL (31.0-37.0); MCV 87.9 fL (80.0-100.0); MEAN PLATELET VOLUME 8.4 fL (7.4-10.4); MONOCYTES 7.6 % (2-11); NEUTROPHIL ABS# 8.24 10x3/uL (1.78-5.38); NEUTROPHILS 72.1 % (40-80); PLATELET COUNT 274 10x3/uL (130-400); RBC 3.38 10x6/uL (4.20-6.10); WBC 11.4 10x3/uL (4.8-10.8)
[2021-02-15 07:35] LABS: ANION GAP 11.1 mmol/L (8-16); CALCIUM 9.1 mg/dL (8.5-10.1); CREATININE - SERUM 1.1 mg/dL (0.6-1.3); POTASSIUM - SERUM 4.1 mmol/L (3.5-5.1)
--- NOTE | 2021-02-15 07:38 | NUR ---
PT RESTING IN BED WITH EYES OPEN CALL LIGHT IN REACH WILL MONITER
[2021-02-15 07:47] VITALS: BP 111/59
--- NOTE | 2021-02-15 11:38 | NUR ---
I have reviewed this patient and I concur with the Shift Assessment completed by the Licensed Practical Nurse today this shift.
--- NOTE | 2021-02-15 12:19 | NUR ---
Nutrition Re-Assessment Diet: Diabetic PO intake: ~72% x last 9 meals. Patient states that his appetite is good but that he does not care for the foods. States that he wants his diet changed from diabetic to Regular. However, his complaints about the food would not be changed should his diet be changed. I explained to him that his current diet simply restricts his CHO intake and that his blood glucose has been slightly elevated. I did update his diet order to reflect his food preferences which I have allowed him to have. Last BM: 02/14/21 Wt: 202# (02/06/21) Meds noted: miralax, MVI, ferrous sulfate, januvia, metformin, SSI Labs noted: Glu 116(H) Estimated nutrition needs and nutrition diagnosis remain unchanged from initial nutrition asssessment at this time. Patient is progressing towards meeting nutrition goals at this time. Recommendations/Interventions: -Continue current diet. Updated diet order to reflect patient's food preferences. -Will continue to monitor PO Intake and wt trend. -RD will follow-up within 7 days.
--- NOTE | 2021-02-15 17:50 | NUR ---
PT RESTING IN BEDSIDE CHAIR CALL LIGHT IN REACH WILL MONITER
[2021-02-15 19:09] VITALS: BP 125/68
--- NOTE | 2021-02-15 20:00 | NUR ---
PATIENT IS ALERT/ORIENT. CALL LIGHT WITHIN REACH. VOICES NO NEEDS AT THIS TIME. WILL CONTINUE WITH PLAN OF CARE
--- NOTE | 2021-02-16 00:31 | NUR ---
PATIENT TURNED RN RADIOLOGY LIGHT TO USE BATHROOM. STAND BY ASST WITH WHEELED WALKER TO BATHROOM
--- NOTE | 2021-02-16 04:25 | RHP ---
PATIENT: NANO URBAN MEDICAL RECORD: [id number] ACCOUNT: [id number] LOCATION:[facility] : 36 ADMISSION DATE: 02/05/21 REHABILITATION HISTORY AND PHYSICAL EXAMINATION POST ADMISSION PHYSICIAN EXAMINATION ADMITTING DIAGNOSES: Orthostatic hypotension and syncope. HISTORY OF PRESENT ILLNESS: The patient is an 80-year-old gentleman who had a witnessed syncopal episode on 02/03. He has been having these frequently. Apparently, the patient decided not to take his meds because he thought he did not need them. He then decided to take double the dose on the morning of the syncopal episode. The patient was admitted to the medical floor for inpatient management and treatment. Cardiology was consulted and noted atrial fib. He was maintaining a normal sinus rhythm though, he has been on Cordarone. They checked a Doppler and echo, both of those were pretty good. The patient does also have a history of type 2 diabetes. Carotid Doppler 02/03 showed no evidence of hemodynamically significant carotid disease. They felt like he was just having some orthostatic hypotension, was placed on Florinef. The patient prior to this admission was independent with ADLs and ambulation using a rolling walker for up to 700 feet. He lives independently with his , has been doing some outpatient therapy, but continues to fall frequently. He is supervision to min assist with ADLs, has been having difficulty with ambulation with a rolling walker secondary to his hypotension. The patient has ambulated 250 feet with a rolling walker, but is impulsive, requires constant cueing. He is currently being monitored closely for lab values, medication adjustments. He is on telemetry. Decreased activity tolerance, decreased strength, balance deficits, gait disturbance, impaired mobility, high fall risk and has self-care deficits. These are all barriers to discharge home. COMORBIDITIES: Include benign prostatic hypertrophy, diabetes, gastroesophageal reflux disease, electrolyte abnormalities, orthostatic hypotension, and hypothyroidism. PAST MEDICAL HISTORY: Significant for a history of intracranial bleed, diabetes, thyroid problems, atrial fib, acid reflux, benign prostatic hypertrophy, non-insulin dependent diabetes, some mild dementia. PAST SURGICAL HISTORY: Includes foot surgery and tonsillectomy. ALLERGIES: No known drug allergies. CURRENT MEDICATIONS: He is currently on multivitamin daily. He is on Florinef 0.1 mg daily, ferrous sulfate 325 daily, Protonix 40 mg daily, doxycycline 100 mg daily, aspirin chewable 81 mg daily, amiodarone 200 mg daily, Synthroid 50 mcg daily, Kamini 60 mg b.i.d., Flomax 0.4 mg at bedtime. He is on fish oil, Aricept 10 mg at bedtime, metformin 500 mg b.i.d., Januvia 50 mg b.i.d. He is on a low resistance sliding scale insulin. Carafate 1 gram q.a.c. and at bedtime and he is on glucose replacement protocol as needed for low blood sugars. HABITS: No alcohol or tobacco use. FAMILY HISTORY: Noncontributory. HISTORY AND PHYSICAL [id number] NANO URBAN SOCIAL HISTORY: The patient hopes to return back home with his . REVIEW OF SYSTEMS: GENERAL: He does complain of some weakness and fatigue. HEENT: Denies cough, cough, congestion. CARDIOVASCULAR: Denies any chest pain. PHYSICAL EXAMINATION: VITAL SIGNS: Stable, afebrile. GENERAL: An elderly gentleman, in no acute distress upon exam. HEENT: Normocephalic and atraumatic. Mucosa moist. NECK: Supple. No lymphadenopathy. LUNGS: Clear at this time. No wheezing or rales. HEART: Regular rate and rhythm. No murmurs, rubs or gallops. ABDOMEN: Soft, benign, nondistended. Positive bowel sounds times 4. EXTREMITIES: No clubbing, cyanosis or edema. NEUROLOGIC: He does have some slow mentation. LABORATORY DATA: His white count is 10.5, H&H 10 and 31, and platelet count is noted to be 221. ASSESSMENT: This is an 80-year-old gentleman admitted to the rehab with a working diagnosis of orthostatic hypotension with syncope. The patient has potential to make improvements. We instituted the following multidisciplinary therapies including, but not limited to physical, occupational, respiratory, speech, nutritional services, prosthetics and orthotics. Given his complex medical condition and risks for more complications, rehabilitation services cannot be provided at a low level of care such as prison facility. PLAN: Admit to [facility] for inpatient therapy to include the following disciplines: A. Physical therapy to improve gait, all transfer skills and bed mobility to a modified independent level. B. Occupational therapy to improve activities of daily living. C. Case management to help with discharge planning and placement options. D. Nutrition to assist with nutritional needs. E. Rehabilitation nursing to assist in monitoring the patient's underlying medical conditions and to assist with any type of bowel or bladder management. 1. The patient's current medication and medical care will be continued. 2. Will be placed on standard fall precautions. 3. We will adjust medications as needed and we will see again in the a.m. TRANSINT:[id number] Voice Confirmation ID: [id number] DOCUMENT ID: [id number] DOUGLAS notes whether there has been none or any medical/functional change since admission: - No change since preadmission screen. DOUGLAS attests patient continues to be appropriate for IRF: - Continues to be appropriate. HISTORY AND PHYSICAL [id number] NANO URBAN,ANAYA GOMEZ MD at 0425 CC: [id number] DICTATION DATE: 02/08/21 0855 SCOURING PADS SUPERVISOR: 02/08/21 1037 ADM IN [place] [id number] [place] [address]
--- NOTE | 2021-02-16 04:28 | NUR ---
Fili HINTON APN, INTO SEE PATIENT. NEW ORDERS RECEIVED FOR DISCHARGE TO HOME TODAY.
--- NOTE | 2021-02-16 07:35 | NUR ---
PT RESTING IN BED WITH EYES OPEN CALL LIGHT IN REACH NO PROBLEMS WILL MONITER
[2021-02-16 07:55] VITALS: BP 105/62
--- NOTE | 2021-02-16 11:33 | NUR ---
PATIENT DISCHARGING HOME TODAY WITH FAMILY. [facility] WILL RESUME THERAPY AT HOME. NO NEW DME NEEDED AT THIS TIME. [facility] WILL FOLLOW WITH PATIENT. CHAMP SIGNED, IMM SERVED AND EXPLAINED ONE GIVEN TO PATIENT AND ONE FILED IN CHART.DR. VIDES OFFICE WILL CALL PATIENT WITH AN APPOINTMENT , DR. JUAN GRIFFITH 03/04/21 @ 10:45. DISCHARGE INSTRUCTIONS FAXED TO PCP, HOME HEALTH, [facility] AND REVIEWED WITH PATIENT.
--- NOTE | 2021-02-16 13:00 | NUR ---
PT DISCHARGED TO HOME VIA WHEELCHAIR WITH TOLERATED WELL
== END 2021-02-16 16:45 | disposition home health service (06) | DRG 312 ==
LOC: D.REHAB 13:54
PROVIDERS: ADMIT Emergency Medicine; ATTEND Emergency Medicine
DX: I95.1 Orthostatic hypotension (principal); N40.0 Benign prostatic hyperplasia without lower urinary tract symptoms; E11.9 Type 2 diabetes mellitus without complications; K21.9 Gastro-esophageal reflux disease without esophagitis; E03.9 Hypothyroidism, unspecified; E87.8 Other disorders of electrolyte and fluid balance, not elsewhere classified; E83.42 Hypomagnesemia